=== PATIENT | female | born 1985 | race Caucasian/White ===

== ENCOUNTER 2017-02-27 00:17 | Emergency (ER) | payer OTHER ==
[2017-02-27] MEDS ORDERED: NALOXONE HCL INJ/PF 0.4 MG/1 ML SDV IV ONE (00:21)
[2017-02-27] MEDS ORDERED: ONDANSETRON HCL INJ/PF 4 MG/2 ML SDV IV ONE (00:21)
--- NOTE | 2017-02-27 00:37 | ER Document Report ---
ED General - General Stated Complaint: POSSIBLE OD Notes: Patient is a 31 of female presents for complaint of an overdose. Patient Shall appear 1. Bystanders thought there may have been some fentanyl mixed with it. This is really unclear. Patient says in of the drug she use was marijuana. She denies any alcohol use. When the paramedics arrived bystanders had been doing CPR. Patient was somnolent but awake. She has been awake for them on the way here yet still somnolent. O2 saturations on arrival 87% on room air. She denies a recent fevers. No infections. No trauma. She has no other complaints at this time. He did vomit once in the months. TRAVEL OUTSIDE OF THE [place] IN LAST 30 DAYS: No - Related Data Allergies/Adverse Reactions: tramadol HCl [From Ultram] Allergy (Severe, Verified 08/30/16 15:51) haloperidol [From Haldol] Allergy (Verified 08/30/16 15:51) sulfamethoxazole [From Bactrim] Allergy (Verified 08/30/16 15:51) trimethoprim [From Bactrim] Allergy (Verified 08/30/16 15:51) Past Medical History - Social History Smoking Status: Current Every Day Smoker Frequency of alcohol use: Occasional Drug Abuse: Heroin, Marijuana Family History: Arthritis, CAD, CVA, DM, Hyperlipidemia, Hypertension, Malignancy Pulmonary Medical History: Reports: Hx Bronchitis - Reports history of bronchitis Neurological Medical History: Reports: Hx Migraine Renal/ Medical History: Reports: Hx Ovarian Cysts GI Medical History: Reports: Hx Gastroesophageal Reflux Disease, Hx Hepatitis - c Skin Medical History: Reports Hx MRSA Psychiatric Medical History: Reports: Hx Anxiety, Hx Bipolar Disorder, Hx Borderline Personality Disorder, Hx Depression, Hx Personality Disorder Infectious Medical History: Reports: Hx Hepatitis - c, Hx MRSA - Immunizations Immunizations up to date: Yes Hx Diphtheria, Pertussis, Tetanus Vaccination: Yes - 2013 Hx Pneumococcal Vaccination: 09/14/12 Review of Systems - Review of Systems Notes: My Normal Review Basic REVIEW OF SYSTEMS: CONSTITUTIONAL : Denies fever, chills, or sweats. Denies recent illness. EENT: Denies eye, ear, throat, or mouth pain or symptoms. Denies nasal or sinus congestion. RESPIRATORY: Shallow respirations GASTROINTESTINAL: Denies abdominal pain. Denies nausea, vomiting, or diarrhea. Denies constipation. Last BM: GENITOURINARY: Denies difficulty urinating, painful urination, burning, frequency, or blood in urine. MUSCULOSKELETAL: Denies neck or back pain or joint pain or swelling. SKIN: Denies rash or skin lesions. NEUROLOGICAL: Altered mental status. Denies headache. Denies weakness or paralysis or loss of use of either side. Denies problems with gait or speech. Denies sensory or motor loss. ALL OTHER SYSTEMS REVIEWED AND NEGATIVE. Physical Exam - Vital signs Vitals: Resp Pulse Ox 21 H 93 02/27/17 00:20 02/27/17 00:20 - Notes Notes: General Appearance: Well nourished, somnolent but awake. Cooperative, no acute distress, no obvious discomfort. Vitals: reviewed, See vital signs table. Head: no swelling or tenderness to the head Eyes: PERRL, EOMI, Conjuctiva clear Mouth: No decreasd moisture Neck: Supple, no neck tenderness, No thyromegaly Lungs: No wheezing, No rales, No rhonci, No accessory muscle use, good air exchange bilaterally. Heart: Normal rate, Regular rythm, No murmur, no rub Abdomen: Normal BS, soft, No rigidity, No abdominal tenderness, No guarding, no rebound, no abdominal masses, no organomegaly Extremities: strength 5/5 in all extremities, good pulses in all extremities, no swelling or tenderness in the extremities, no edema. Skin: warm, dry, appropriate color, no rash Neuro: speech clear, oriented x 3, somnolent, responds appropriately to questions. Cranial nerves II through XII are intact. Patient moves all extremity is on her own. Course - Vital Signs Vital signs: Temp Pulse Resp BP Pulse Ox 24 H 105/75 93 02/27/17 03:30 02/27/17 03:30 02/27/17 03:30 - EKG Interpretation by Me Additional EKG results interpreted by me: 02/27/17 00:37 EKG is reviewed and interpreted by me. EKG shows sinus tachycardia with rate [address] segment elevation or depression. No ischemic T wave inversions. WA interval, QRS duration, QTC stools are within normal range. No old EKG available for comparison. - Transfer of Care Notes: 02/27/17 04:31 Patient has now been observed for over 4 hours and has not had any repeat episodes of altered mental status or hypoxemia. She's actually awake and alert and yelling at staff because she wants to speak with her mother. She says her mother works here in the hospital in communications but she is unsure if her mother is actually working tonight. I informed her that I would be happy to get her a phone so that she can call her mother and speak with her. Patient is not hypoxic. She is obviously not at all sedated at this time. Patient tells me that she only uses heroin because of her tooth pain and therefore is requesting that I prescribe her opiate pain medications for her tooth pain. Patient has multiple track aguero. I do not think that the patient uses heroin only for her tooth pain. I informed her that prescribing her opiate pain medications would actually be a very bad idea as I'm concerned that she would potentially abuse these as well. I informed her that continued use of opiate medications or heroin may eventually lead to her as she obviously is not very careful on her use of these substances, i.e.: her overdose tonight. I did look at her teeth. Her dentition is in fairly good shape. She does have a right lower molar with a filling in place that is slightly mccall in color. This is the tooth that she says is causing her pain. There is no gingival swelling or inflammation around it. I informed her I will place her on penicillin help prevent infection, but she needs to call a dentist and make an appointment to follow-up for more definitive care for her tooth. Patient again is not happy with this and again is requesting pain medication and a direct referral to a dentist that will not make her pay up front. I informed her that I do not know of any dentists in the area that will not make her pay up front. She has no facial swelling. No signs of facial abscess. At this time patient will be discharged home. She again is strongly encouraged to avoid opiate drugs and medications. I've given her information for [facility] as well as a list of low cost dental clinics. Dictation of this chart was performed using voice recognition software; therefore, there may be some unintended grammatical errors. Discharge - Discharge Clinical Impression: Pain, dental Condition: Good Disposition: HOME, SELF-CARE Instructions: Penicillin V K ([facility]) Additional Instructions: Toothache Your pain is due to dental decay. The tooth must be repaired in order for you to feel better. You will, therefore, be referred to a dentist. Severe swelling or drainage around a tooth usually means a deep dental abscess. This also requires evaluation and treatment by the dentist, but antibiotics may be prescribed while awaiting dental treatment. You should be rechecked immediately if you develop major swelling of the face, increasing pain, a lump in the jaw or gums, headache, or fever. Please call a dentist office to make a follow-up appointment. Please avoid IV drug use. Please avoid opiate use. Continued use of opiates ,such as Heroin, may lead to your . It is acceptable to take Tylenol or Motrin for your pain. I have included information to [facility] services to help you with your opiate addiction. Prescriptions: Penicillin V Potassium [Penicillin Vk 500 mg Tablet] 500 mg PO QID #28 tablet Referrals: DOMI LOVETT DDS [ACTIVE STAFF] - 02/28/17
[2017-02-27] MEDS ORDERED: PENICILLIN V POTASSIUM 500 MG TABLET PO ONE (04:20)
[2017-02-27 04:51] VITALS: BP 99/72
--- NOTE | 2017-02-27 09:05 | EKG REPORT ---
SEVERITY:- BORDERLINE ECG - SINUS TACHYCARDIA LOW VOLTAGE WITH RIGHT AXIS DEVIATION : Confirmed by: Rd Acuña MD 27-Feb-2017 09:05:00
== END 2017-02-27 04:51 | disposition home or self-care (01) ==
LOC: ER 00:17
DX: K08.89 Other specified disorders of teeth and supporting structures (principal); F11.10 Opioid abuse, uncomplicated; F12.10 Cannabis abuse, uncomplicated; R40.0 Somnolence; R06.09 Other forms of dyspnea; R00.0 Tachycardia, unspecified; F17.200 Nicotine dependence, unspecified, uncomplicated; Z88.8 Allergy status to other drugs, medicaments and biological substances; Z88.1 Allergy status to other antibiotic agents; Z88.5 Allergy status to narcotic agent; Z86.14 Personal history of Methicillin resistant Staphylococcus aureus infection
CPT/HCPCS: 93005; 99284; 96374; 96375; 93010; J2310; J2405

== ENCOUNTER 2017-03-25 21:12 | Emergency (ER) | payer OTHER ==
--- NOTE | 2017-03-25 21:59 | ER Document Report ---
ED General - General Chief Complaint: Psych Problem Stated Complaint: PSYCH PROBLEM Time Seen by Provider: 03/25/17 21:59 Mode of Arrival: Stretcher Information source: Patient, Law Enforcement, Emergency Med Personnel TRAVEL OUTSIDE OF THE [place] IN LAST 30 DAYS: No - HPI Notes: Patient with a long-standing psychiatric history and history of previous overdoses and opiate abuse and MRSA and hepatitis C and IV drug use presents to emergency department with IV C paper with report that the patient has told her roommate she was looking for a knife to cut her wrist and stated she wanted to kill herself. The patient had placed on Facebook concerning suicide and stating that she did not want to wake up. The patient was threatening to fight her roommates and told her mother that she would kill herself previously. Patient has a history of previous attempts with bipolar disorder and PTSD. On my questioning the patient states that she wants "those bitches out of my house"referring to her roommates, and is also referring to her mother, the petitioner on the IVC papers, in foul terms. Patient is nebulous about suicidal intent and ideation. She does state she wants to go home. She denies any homicidal ideation or obvious hallucinations. The patient reportedly was using heroin previously. The patient has been alert although with slightly slurred speech is noted by EMS. The patient reportedly may have overdosed on Fioricet and clindamycin which she is prescribed for her toothache which is chronic. Patient is nebulous about the overdose, gouging only taking the clindamycin in excess. - Related Data Allergies/Adverse Reactions: tramadol HCl [From Ultram] Allergy (Severe, Verified 03/25/17 21:42) haloperidol [From Haldol] Allergy (Verified 03/25/17 21:42) sulfamethoxazole [From Bactrim] Allergy (Verified 03/25/17 21:42) trimethoprim [From Bactrim] Allergy (Verified 03/25/17 21:42) Past Medical History - Social History Smoking Status: Current Every Day Smoker Chew tobacco use (# tins/day): No Drug Abuse: Prescription drugs Family History: Arthritis, CAD, CVA, DM, Hyperlipidemia, Hypertension, Malignancy Pulmonary Medical History: Reports: Hx Bronchitis - Reports history of bronchitis Neurological Medical History: Reports: Hx Migraine Renal/ Medical History: Reports: Hx Ovarian Cysts GI Medical History: Reports: Hx Gastroesophageal Reflux Disease, Hx Hepatitis - c Skin Medical History: Reports Hx MRSA Psychiatric Medical History: Reports: Hx Anxiety, Hx Bipolar Disorder, Hx Borderline Personality Disorder, Hx Depression, Hx Personality Disorder Infectious Medical History: Reports: Hx Hepatitis - c, Hx MRSA - Immunizations Immunizations up to date: Yes Hx Diphtheria, Pertussis, Tetanus Vaccination: Yes - 2013 Hx Pneumococcal Vaccination: 09/14/12 Review of Systems - Review of Systems Notes: REVIEW OF SYSTEMS: CONSTITUTIONAL : Denies fever, chills, or sweats. Denies recent illness. EENT: Denies eye, ear, throat symptoms. Denies nasal or sinus congestion or discharge. Denies throat, tongue, or mouth swelling or difficulty swallowing. Patient does report chronic dental pain which is unchanged. CARDIOVASCULAR: Denies chest pain. Denies palpitations or racing or irregular heart beat. Denies ankle edema. RESPIRATORY: Denies cough, cold, or chest congestion. Denies shortness of breath, difficulty breathing, or wheezing. GASTROINTESTINAL: Denies abdominal pain or distention. Denies nausea, vomiting , or diarrhea. Denies blood in vomitus, stools, or per rectum. Denies black, tarry stools. Denies constipation. GENITOURINARY: Denies difficulty urinating, painful urination, burning, frequency, blood in urine, or discharge. FEMALE GENITOURINARY: Denies vaginal bleeding, heavy or abnormal periods, irregular periods. Denies vaginal discharge or odor. MUSCULOSKELETAL: Denies back or neck pain or stiffness. Denies joint pain or swelling. SKIN: Denies rash, lesions or sores. HEMATOLOGIC : Denies easy bruising or bleeding. LYMPHATIC: Denies swollen, enlarged glands. NEUROLOGICAL: Denies confusion or altered mental status. Denies passing out or loss of consciousness. Denies dizziness or lightheadedness. Denies headache. Denies weakness or paralysis or loss of use of either side. Denies problems with gait or speech. Denies sensory loss, numbness, or tingling. Denies seizures. PSYCHIATRIC: Denies homicidal ideation. Patient admits to anxiety and recent stressors. ALL OTHER SYSTEMS REVIEWED AND NEGATIVE. Dictation was performed using [employer] voice recognition software Physical Exam - Vital signs Vitals: Temp Pulse Resp BP Pulse Ox 98.3 F 61 18 105/69 98 03/25/17 21:29 03/25/17 21:29 03/25/17 21:29 03/25/17 21:29 03/25/17 21:29 - Notes Notes: PHYSICAL EXAMINATION: GENERAL: Well-appearing, well-nourished. Patient is anxious and tearful. HEAD: Atraumatic, normocephalic. EYES: Pupils equal round and reactive to light, extraocular movements intact, conjunctiva are normal. ENT: Nares patent, oropharynx clear without exudates. Moist mucous membranes. NECK: Normal range of motion, supple without lymphadenopathy LUNGS: Breath sounds clear to auscultation bilaterally and equal. No wheezes rales or rhonchi. HEART: Regular rate and rhythm without murmurs ABDOMEN: Soft, nontender, nondistended abdomen. No guarding, no rebound. No masses appreciated. Female : deferred Musculoskeletal: Normal range of motion, no pitting or edema. No cyanosis. NEUROLOGICAL: Cranial nerves grossly intact. Normal gait. Normal sensory, motor exams. Somewhat slurred speech. PSYCH: Labile affect. Tearful. Is very nebulous about suicidal ideation and intent, but does admit to overdose on clindamycin. SKIN: Warm, Dry, normal turgor, no rashes or lesions noted. Course - Re-evaluation Re-evalutation: 03/26/17 03:31 Patient was given Ativan with some improvement initially, then the patient was given ibuprofen for her chronic toothache pain. Repeat exam showed no abnormalities with the teeth. Patient complains she wanted something stronger for toothache pain, but I informed her that she would not receive anything stronger. Patient remained relatively alert, and there was no clinical suspicion for any significant overdose based upon her normal vitals, negative Tylenol level and her degree of alertness. 03/26/17 03:34 Patient again was belligerent with staff. She was given additional 2 mg of by mouth Ativan and was given Zyprexa 10 mg ODT. Vital signs were stable. Drug screen positive for opiates benzodiazepines and cocaine. Patient medically cleared for psychiatric evaluation and management. 03/26/17 03:37 - Vital Signs Vital signs: Temp Pulse Resp BP Pulse Ox 98.3 F 61 18 114/79 98 03/25/17 21:29 03/25/17 21:29 03/26/17 00:04 03/26/17 00:04 03/26/17 00:04 03/26/17 03:29 Patient was given Ativan with some degree of improvement. Patient went to sleep briefly. - Laboratory Result Diagrams: 03/25/17 23:47 03/25/17 23:47 Laboratory results interpreted by me: 03/25/17 03/25/17 03/25/17 21:12 23:47 23:47 MCH 26.1 L RDW 17.1 H Lymphocytes % 45.7 H Chloride 109 H Carbon Dioxide 18 L Total Protein 8.3 H Ur Leukocyte Esterase SMALL H Urine Ascorbic Acid 40 H Acetaminophen < 10 L - EKG Interpretation by Or EKG shows normal: Sinus rhythm Additional EKG results interpreted by me: 03/26/17 00:09 EKG as interpreted by tn showed normal sinus rhythm at 58. There is no gross evidence for acute [place] or ischemia identified. There is no significant change from previous EKG reviewed from 02/27/17. Discharge - Discharge Clinical Impression: Polysubstance abuse, Suicidal ideation, Bipolar disorder with depression
[2017-03-25 22:04] LABS: APPEARANCE,URINE CLOUDY; BILIRUBIN,URINE NEGATIVE (NEGATIVE); GLUCOSE, URINE NEGATIVE (NEGATIVE); KETONES,URINE NEGATIVE (NEGATIVE); LEUKOCYTE ESTERASE,URINE SMALL (NEGATIVE); NITRITE,URINE NEGATIVE (NEGATIVE); PROTEIN,URINE NEGATIVE (NEGATIVE); URINE SPECIFIC GRAVITY 1.019; UROBILINOGEN,URINE NEGATIVE mg/dL (<2.0)
[2017-03-25] MEDS ORDERED: LORAZEPAM 1 MG TABLET PO ONE (23:46)
[2017-03-25 23:54] LABS: URINE BARBITURATES SCREEN UNCONFIRMED POSITIVE; URINE METHADONE SCREEN NEGATIVE; URINE OPIATES LOW NEGATIVE; URINE PHENCYCLIDINE SCREEN NEGATIVE
[2017-03-26 00:04] LABS: ABSOLUTE BASOPHILS # (AUTO) 0.1 10^3/uL (0.0-0.2); ABSOLUTE EOSINOPHILS # (AUTO) 0.1 10^3/uL (0.0-0.6); ABSOLUTE LYMPHOCYTES (AUTO) 3.5 10^3/uL (0.5-4.7); ABSOLUTE MONOCYTES (AUTO) 0.5 10^3/uL (0.1-1.4); ABSOLUTE NEUT (AUTO) 3.5 10^3/uL (1.7-8.2); BASOPHILS % (AUTO) 1.2 % (0-2); EOSINOPHILS % (AUTO) 1.6 % (0-6); HEMATOCRIT 41.8 % (36.0-47.0); HEMOGLOBIN 13.5 g/dL (12.0-15.5); HGB HCT DIFFERENCE -1.3; LYMPHOCYTES % (AUTO) 45.7 % (13-45); MEAN CORPUSCULAR HEMOGLOBIN 26.1 pg (27.0-33.4); MEAN CORPUSCULAR HGB CONC 32.4 g/dL (32.0-36.0); MEAN CORPUSCULAR VOLUME 80 fl (80-97); MONOCYTES % (AUTO) 6.4 % (3-13); RED BLOOD COUNT 5.19 10^6/uL (3.72-5.28); RED CELL DISTRIBUTION WIDTH 17.1 % (11.5-14.0); SEGMENTED NEUTROPHILS % (AUTO) 45.1 % (42-78); WHITE BLOOD COUNT 7.8 10^3/uL (4.0-10.5)
[2017-03-26 00:13] LABS: ALANINE AMINOTRANSFERASE 34 U/L (9-52); ALBUMIN 4.1 g/dL (3.5-5.0); ALKALINE PHOSPHATASE 121 U/L (38-126); ANION GAP 14 (5-19); ASPARTATE AMINO TRANSFERASE 22 U/L (14-36); BILIRUBIN,DIRECT 0.3 mg/dL (0.0-0.4); BILIRUBIN,TOTAL 0.4 mg/dL (0.2-1.3); BLOOD UREA NITROGEN 9 mg/dL (7-20); CALCIUM 9.3 mg/dL (8.4-10.2); CARBON DIOXIDE 18 mmol/L (22-30); CHLORIDE 109 mmol/L (98-107); CREATININE RESULT 0.81 mg/dL (0.52-1.25); GLUCOSE 88 mg/dL (75-110); POTASSIUM 4.5 mmol/L (3.6-5.0); SODIUM 140.5 mmol/L (137-145); TOTAL PROTEIN 8.3 g/dL (6.3-8.2)
[2017-03-26 00:15] LABS: ALCOHOL < 10 mg/dL (NONE DETECTED)
[2017-03-26] MEDS ORDERED: IBUPROFEN 800 MG TABLET PO ONE ×2 (02:09→11:55)
[2017-03-26] MEDS ORDERED: LORAZEPAM 1 MG TABLET PO ONE (03:27)
[2017-03-26] MEDS ORDERED: OLANZAPINE 5 MG TAB.RAPDIS PO ONE (03:28)
[2017-03-26] MEDS ORDERED: ACETAMINOPHEN 325 MG TABLET PO ONE ×2 (07:55→15:28)
--- NOTE | 2017-03-26 09:16 | ER Document Report ---
Doctor's Note Notes: 03/26/17 09:16 As the rounding physician for our psychiatric patients, I have reviewed the chart, vitals, lab work. Patient has been examined and noted to be stable . I am awaiting mental health in put. 03/26/17 10:14
--- NOTE | 2017-03-26 13:04 | EKG REPORT ---
SEVERITY:- ABNORMAL ECG - SINUS RHYTHM LAD, CONSIDER LEFT ANTERIOR FASCICULAR BLOCK : Confirmed by: Layton Gonzalez 26-Mar-2017 13:02:44
[2017-03-26] MEDS ORDERED: ACETAMINOPHEN 325 MG TABLET ONE (15:31)
--- NOTE | 2017-03-26 15:32 | PSYCHOLOGICAL NOTE ---
Psych Note - Psych Note Psych Note: Patient with a long-standing psychiatric history and history of previous overdoses and opiate abuse and MRSA and hepatitis C and IV drug use presents to emergency department with IV C paper with report that the patient has told her roommate she was looking for a knife to cut her wrist and stated she wanted to kill herself. The patient had placed on Facebook concerning suicide and stating that she did not want to wake up. The patient was threatening to fight her roommates and told her mother that she would kill herself previously. Patient has a history of previous attempts with bipolar disorder and PTSD. Patient states that she was not trying to kill herself. She states her roommates thought she overdosed. The patient states that she did take too many of her pills however it was because her teeth hurt. Patient states she is "trying to stop the pain." Patient states that she needs her to tease out because they hurt so much." [facility]. Patient disclosed that she has schizoaffective bipolar type disorder. patient denies wanting to kill herself stating she just has pain in her tooth. She continue disclosed that she does not remember posting anything about suicidal ideation. Clinician asked the patient why her friends and family would be concerned that she kill herself on Mother's Day, patient stated "why would I do that that's stupid." Patient continued to disclose that her mother is "a drama rollins." Patient states that she will [facility] all the [facility] to include [facility]. Clinician spoke with patient's mother. Patient's mother became very emotional and requested assistance for the patient substance abuse. She continue disclose the patient is attempting suicide and will kill herself tomorrow on Mother's Day because "she would like nothing better to make me miserable for the rest of my life on Mother's Day." She continued disclosed concern the patient was not going to receive any assistance and that the patient is suicidal. She continued disclosed that there are text messages in Facebook posts surrounding suicidal ideation. Clinician requested patient's mother to bring this to the emergency department for the clinicians review. Clinician needed to end the conversation because of patient's mother emotional's response. Polysubstance abuse Schizoaffective bipolar type per history provided by patient Impression\\plan: Patient is recommended for rescind of IVC is considered psychiatrically cleared for discharge. Patient does not meet IVC criteria per [place] GS 122C. Patient has a long history of overdose substance abuse. Patient is noted to be complaining of her teeth hurting since last year and has had multiple visits to the ED. Patient has demonstrated behavior congruent with seeking narcotics from attending physician. Patient is urged to seek substance abuse assessment and treatment. Clinician provided substance abuse treatment lists for both inpatient and outpatient. At this time, patient is unwilling to contemplate the possibility of her addiction. Clinician notes that while patient's mother stated should be right to the emergency department with this information, 4 hours later she has not arrived to provided the proof of her statement in the IVC documentation. Dr. Carvajal was consulted on the care and management of this patient; attending physician is in agreement with recommendations and disposition.
[2017-03-26 16:53] VITALS: BP 105/62
== END 2017-03-26 16:55 | disposition home or self-care (01) ==
LOC: ER 21:12
DX: F25.0 Schizoaffective disorder, bipolar type (principal); R45.851 Suicidal ideations; F11.10 Opioid abuse, uncomplicated; K08.89 Other specified disorders of teeth and supporting structures; G89.29 Other chronic pain; F41.9 Anxiety disorder, unspecified; F17.200 Nicotine dependence, unspecified, uncomplicated; Z79.2 Long term (current) use of antibiotics; Z79.891 Long term (current) use of opiate analgesic; Z86.14 Personal history of Methicillin resistant Staphylococcus aureus infection; Z88.5 Allergy status to narcotic agent; Z88.8 Allergy status to other drugs, medicaments and biological substances; Z88.1 Allergy status to other antibiotic agents
CPT/HCPCS: 93005; 99285; 36415; 80307 ×3; 85025; 81025; 80053; 81001; 93010; J3490

== ENCOUNTER 2018-06-13 13:18 | Emergency (ER) | payer OTHER ==
[2018-06-13 13:31] VITALS: BP 107/65
--- NOTE | 2018-06-13 14:23 | ER Document Report ---
ED Medical Screen (RME) - General Chief Complaint: Psych Problem Stated Complaint: WRIST PAIN Time Seen by Provider: 06/13/18 14:20 Mode of Arrival: Ambulatory Information source: Patient Notes: This is a 33-year-old female with a history of opiate abuse, hepatitis C, schizoaffective disorder, chronic pain syndrome, presents to the emergency room with right wrist and left ankle pain. Patient does state that she falls frequently and she may have fallen. She denies any headache, loss of consciousness, neck pain, fever or photophobia. She does report that she picks her skin a lot and she came off her antidepressant recently and has been picking her skin a lot. She denies any recent IV drug abuse. She does have a history of IV drug abuse. She does state that she takes Xanax infrequently for her anxiety. She states that the right wrist and the left ankle pain started a few days ago. TRAVEL OUTSIDE OF THE [place] IN LAST 30 DAYS: No - HPI Onset: Last week Onset/Duration: Gradual Quality of pain: Dull Severity: Moderate Pain Level: 2 Associated Symptoms: denies: Chest pain, Fever, Shortness of breath Exacerbated by: Movement Relieved by: Remaining still Similar symptoms previously: No Recently seen / treated by doctor: Yes - Related Data Smoking: Non-smoker Frequency of alcohol use: None Drug Abuse: Heroin, Methamphetamine Allergies/Adverse Reactions: tramadol HCl [From Ultram] Allergy (Severe, Verified 06/13/18 14:22) haloperidol [From Haldol] Allergy (Verified 06/13/18 14:22) sulfamethoxazole [From Bactrim] Allergy (Verified 06/13/18 14:22) trimethoprim [From Bactrim] Allergy (Verified 06/13/18 14:22) Past Medical History - General Information source: Patient - Social History Cigarette use (# per day): No Chew tobacco use (# tins/day): No Frequency of alcohol use: Occasional Drug Abuse: Cocaine, Heroin, Marijuana Lives with: Spouse/Significant other Family history: None - Past Medical History Cardiac Medical History: Reports: None Pulmonary Medical History: Reports: Hx Bronchitis - Reports history of bronchitis Neurological Medical History: Reports: Hx Migraine Renal/ Medical History: Reports: Hx Ovarian Cysts. Denies: Hx Peritoneal Dialysis GI Medical History: Reports: Hx Gastroesophageal Reflux Disease, Hx Hepatitis - c Skin Medical History: Reports Hx MRSA Psychiatric Medical History: Reports: Hx Anxiety, Hx Bipolar Disorder, Hx Borderline Personality Disorder, Hx Depression, Hx Personality Disorder Infectious Medical History: Reports: Hx Hepatitis - c, Hx MRSA - Immunizations Immunizations up to date: Yes Hx Diphtheria, Pertussis, Tetanus Vaccination: Yes - 2013 Review of Systems - Review of Systems Constitutional: denies: Chills, Fever EENT: No symptoms reported Cardiovascular: No symptoms reported Respiratory: No symptoms reported Gastrointestinal: No symptoms reported Genitourinary: No symptoms reported Female Genitourinary: No symptoms reported Musculoskeletal: See HPI Skin: See HPI Hematologic/Lymphatic: No symptoms reported Neurological/Psychological: See HPI. denies: Hallucinations, Weakness, Paralysis, Lost consciousness, Speech impairment Physical Exam - Vital signs Vitals: Temp Pulse Resp BP Pulse Ox 99.1 F 107 H 16 107/65 99 06/13/18 13:26 06/13/18 13:26 06/13/18 13:26 06/13/18 13:26 06/13/18 13:26 Notes: Physical exam: GENERAL: 33-year-old female she is lethargic, oriented 3, conversant, polite and cooperative. She does appear to be mentating appropriately. HEAD: Atraumatic, normocephalic. EYES: Pupils equal round and reactive to light, extraocular movements intact, sclera anicteric, conjunctiva are normal. ENT: TMs normal, nares patent, oropharynx clear without exudates. Moist mucous membranes. NECK: Normal range of motion, supple without obvious mass LUNGS: Breath sounds clear to auscultation bilaterally and equal. No wheezes rales or rhonchi. HEART: Regular rate and rhythm without murmurs, rubs or gallops. ABDOMEN: Soft, normoactive bowel sounds. No tenderness to palpation. No guarding, no rebound. No masses appreciated. EXTREMITIES: She does have mild swelling over the right wrist without any erythema or warmth or fluctuance. She does have a good radial pulse. She does have good capillary refill. There are multiple skin changes on the fingers, hands, forearms, arms as noted under the skin exam. She has tenderness to palpation of the bone. The left wrist has no tenderness, no swelling, no erythema and has a same skin changes as the other side. Left ankle has mild swelling with no erythema, no warmth, no fluctuance. She does have a good dorsal pedal pulse and good capillary refill. Right ankle is nontender, no swelling, no erythema or warmth with good dorsal pedal pulse. NEUROLOGICAL: Cranial nerves II through XII grossly intact. Normal speech, moving all extremities. PSYCH: Normal mood, normal affect. SKIN: Patient has multiple scabbed lesions from the fingers, hands up to the forearms and arms. Patient states she picks her skin a lot. She does have some erythema over some of the lesions on the left upper extremity (this is the opposite extremity from where her right wrist pain is). There is no fluctuance , there is mild warmth. Course - Re-evaluation Re-evalutation: 06/13/18 15:45 Had a long discussion with the patient's boyfriend who lives with the patient. She is actively using IV drugs. She is getting back on her psychiatric medicines momentarily. She has not had any fever and I do not see any signs of septic arthritis at this time. However, she is actively using and I discussed her markedly elevated risk of serious illness (endocarditis, sepsis, septic arthritis) to her boyfriend. He will try and bring her down to the [facility] in [place] for rehab. Patient herself denies any IV drug use and is in active denial. 06/13/18 15:46 06/13/18 15:55 - Vital Signs Vital signs: Temp Pulse Resp BP Pulse Ox 99.1 F 107 H 16 107/65 99 06/13/18 13:26 06/13/18 13:26 06/13/18 13:26 06/13/18 13:26 06/13/18 13:26 - Diagnostic Test Radiology reviewed: Image reviewed, Reports reviewed Doctor's Discharge - Discharge Clinical Impression: Cellulitis left forearm mild, Sprain to the right wrist and left ankle Condition: Stable Disposition: HOME, SELF-CARE Additional Instructions: Its important that you get back on new medicines. Take the antibiotics as prescribed. Be very careful about falling. Return to the emergency room for any swelling of the wrist or ankle, fever ( temperature greater than 100.5), increasing pain or any concerns or getting worse. I would like you to call to make an appointment with your doctor at the [place] so that you could be seen in the next few days. Prescriptions: Doxycycline Hyclate 100 mg PO BID #20 capsule Referrals: MELAINA MCNAMARA MD [Primary Care Provider] - Follow up as needed
--- NOTE | 2018-06-13 15:19 | RADIOLOGY REPORT (SQ) ---
EXAM DESCRIPTION: ANKLE LEFT AP/LATERAL COMPLETED DATE/TIME: 06/13/2018 3:03 pm REASON FOR STUDY: left ankle pain COMPARISON: None. NUMBER OF VIEWS: Two views TECHNIQUE: AP and lateral radiographic images acquired of the left ankle. LIMITATIONS: None. FINDINGS: MINERALIZATION: Normal. BONES: No acute fracture or dislocation. No worrisome bone lesions. JOINTS: No effusions. SOFT TISSUES: There appears to be some mild soft tissue swelling. No radiopaque foreign body is iden tified. OTHER: No other significant finding. IMPRESSION: NO RADIOGRAPHIC EVIDENCE OF ACUTE INJURY. TECHNICAL DOCUMENTATION: JOB ID: [id number] [email or web address]- All Rights Reserved Reading location - IP/workstation name: [email or web address]
--- NOTE | 2018-06-13 15:21 | RADIOLOGY REPORT (SQ) ---
EXAM DESCRIPTION: WRIST RIGHT 3 VIEWS COMPLETED DATE/TIME: 06/13/2018 3:03 pm REASON FOR STUDY: wrist pain COMPARISON: 04/14/2011 NUMBER OF VIEWS: Three views. TECHNIQUE: AP, lateral, and oblique radiographic images acquired of the right wrist. LIMITATIONS: None. FINDINGS: MINERALIZATION: Normal. BONES: No acute fracture or dislocation. No worrisome bone lesions. Normal alignment. SOFT TISSUES: No soft tissue swelling. No foreign body. OTHER: No other significant finding. IMPRESSION: NEGATIVE STUDY OF THE RIGHT WRIST. NO RADIOGRAPHIC EVIDENCE OF ACUTE INJURY. TECHNICAL DOCUMENTATION: JOB ID: [id number] [employer]- All Rights Reserved Reading location - IP/workstation name: [email or web address]
== END 2018-06-13 15:51 | disposition home or self-care (01) ==
LOC: ER 13:18
DX: S93.402A Sprain of unspecified ligament of left ankle, initial encounter (principal); S63.501A Unspecified sprain of right wrist, initial encounter; L03.114 Cellulitis of left upper limb; X58.XXXA Exposure to other specified factors, initial encounter; R53.83 Other fatigue; F41.9 Anxiety disorder, unspecified; Z91.81 History of falling; Z88.3 Allergy status to other anti-infective agents; Z86.14 Personal history of Methicillin resistant Staphylococcus aureus infection; Z86.19 Personal history of other infectious and parasitic diseases
CPT/HCPCS: 99284; 73600; 73110; L1902; L3908

== ENCOUNTER 2018-06-21 13:15 | Emergency (ER) | payer OTHER ==
[2018-06-21 13:35] VITALS: BP 103/69
--- NOTE | 2018-06-21 14:05 | ER Document Report ---
ED General - General Chief Complaint: Ankle Pain Stated Complaint: WRIST/ANKLE/HIP PAIN Time Seen by Provider: 06/21/18 13:44 Mode of Arrival: Wheelchair Information source: Patient Notes: 33-year-old female presented to ED for complaint of ankle pain and arm pain that radiates up her back. She denies any new injuries. She states the pain moves from one angle to the other and one arm to the other and one side of her back to the other. She has a history of chronic pain. She was seen here last week for pain to the other ankle. She does deny any new injuries no falls. TRAVEL OUTSIDE OF THE [place] IN LAST 30 DAYS: No - HPI Onset: Other - Several days Onset/Duration: Intermittent Quality of pain: Achy, Sharp Severity: Severe Pain Level: 5 Associated symptoms: Other - Chronic pain to ankles wrist and back, states her pain moves from one side to the other Exacerbated by: Movement Relieved by: Denies Similar symptoms previously: Yes Recently seen / treated by doctor: Yes - Related Data Allergies/Adverse Reactions: tramadol HCl [From Ultram] Allergy (Severe, Verified 06/21/18 13:16) haloperidol [From Haldol] Allergy (Verified 06/21/18 13:16) sulfamethoxazole [From Bactrim] Allergy (Verified 06/21/18 13:16) trimethoprim [From Bactrim] Allergy (Verified 06/21/18 13:16) Past Medical History - General Information source: Patient - Social History Smoking Status: Never Smoker Cigarette use (# per day): No Chew tobacco use (# tins/day): No Smoking Education Provided: No Frequency of alcohol use: Rare Drug Abuse: None Family History: Arthritis, CAD, CVA, DM, Hyperlipidemia, Hypertension, Malignancy - Past Medical History Cardiac Medical History: Reports: None Pulmonary Medical History: Reports: Hx Bronchitis - Reports history of bronchitis Neurological Medical History: Reports: Hx Migraine Renal/ Medical History: Reports: Hx Ovarian Cysts Malignancy Medical History: Reports: None GI Medical History: Reports: Hx Gastroesophageal Reflux Disease, Hx Hepatitis - c Skin Medical History: Reports Hx MRSA Psychiatric Medical History: Reports: Hx Anxiety, Hx Bipolar Disorder, Hx Borderline Personality Disorder, Hx Depression, Hx Personality Disorder Traumatic Medical History: Reports: None Infectious Medical History: Reports: Hx Hepatitis - c, Hx MRSA Surgical Hx: Negative Past Surgical History: Reports: None - Immunizations Immunizations up to date: Yes Hx Diphtheria, Pertussis, Tetanus Vaccination: Yes - 2013 Hx Pneumococcal Vaccination: 09/14/12 Review of Systems - Review of Systems Constitutional: No symptoms reported EENT: No symptoms reported Cardiovascular: No symptoms reported Respiratory: No symptoms reported Gastrointestinal: No symptoms reported Genitourinary: No symptoms reported Female Genitourinary: No symptoms reported Musculoskeletal: Other - Pain that radiates from the right leg to the left leg to the right arm to the left arm to the back of the neck to the head Skin: No symptoms reported Hematologic/Lymphatic: No symptoms reported Neurological/Psychological: No symptoms reported -: Yes All other systems reviewed and negative Physical Exam - Vital signs Vitals: Temp Pulse Resp BP Pulse Ox 99.0 F 105 H 20 103/69 97 06/21/18 13:33 06/21/18 13:33 06/21/18 13:33 06/21/18 13:33 06/21/18 13:33 Interpretation: Normal - General General appearance: Appears well, Alert - HEENT Head: Normocephalic, Atraumatic Eyes: Normal Pupils: PERRL - Respiratory Respiratory status: No respiratory distress Chest status: Nontender Breath sounds: Normal Chest palpation: Normal - Cardiovascular Rhythm: Regular Heart sounds: Normal auscultation Murmur: No - Abdominal Inspection: Normal Distension: No distension Bowel sounds: Normal Tenderness: Nontender Organomegaly: No organomegaly - Back Back: Normal, Nontender - Extremities General upper extremity: Normal inspection, Nontender, Normal color, Normal ROM , Normal temperature General lower extremity: Normal inspection, Nontender, Normal color, Normal ROM , Normal temperature, Normal weight bearing. No: Jodee's sign Forearm: Other - Cock-up splint to the right arm, she states it hurts too much when she takes it off Ankle: Other - Complains of pain in both legs that radiates from one to the other - Neurological Neuro grossly intact: Yes Cognition: Normal Orientation: AAOx4 Thom Coma Scale Eye Opening: Spontaneous Hartsel Coma Scale Verbal: Oriented Thom Coma Scale Motor: Obeys Commands Hartsel Coma Scale Total: 15 Speech: Normal Motor strength normal: LUE, RUE, LLE, RLE Sensory: Normal - Psychological Associated symptoms: Normal affect, Normal mood - Skin Skin Temperature: Warm Skin Moisture: Dry Skin Color: Normal Skin irregularity: other - Picked aguero or rash to both arms Course - Re-evaluation Re-evalutation: 06/21/18 16:23 Patient was treated with naproxen in the emergency room and discharged home with a prescription for naproxen. She was given a list of mental health workers in the area as well as pain management. Patient does have VA insurance she was instructed to please call her VA provider today and try to get into see them as soon as possible and until she can get in to use 1 of the local [facility] health providers for her mental health medications or the pain management for her pain management medications - Vital Signs Vital signs: Temp Pulse Resp BP Pulse Ox 99.0 F 105 H 20 103/69 97 06/21/18 13:33 06/21/18 13:33 06/21/18 13:33 06/21/18 13:33 06/21/18 13:33 Discharge - Discharge Clinical Impression: Chronic pain syndrome Condition: Stable Disposition: HOME, SELF-CARE Additional Instructions: Chronic Pain Control Stress, inactivity, and depression make pain more severe regardless of the cause of the pain. Stress and poor physical condition can cause pain such as headaches and backache. Relaxation: Rest in a quiet place with your eyes closed for 20 minutes twice daily. Concentrate on a pleasant image, or simply "feel" your breathing. Clear your mind. Stress management: Deal with your "stressors." Either take action, or eliminate the stressor from your life. Don't let things hang over you. Accept those things you can't change. Nutrition: Eat small, balanced meals -- don't skip, don't overeat. Meals should be high-carbohydrate, low-sugar, low-fat. Exercise: Exercise helps painful conditions and eases stress. Get 30 minutes of moderate exercise, five days a week. Do an activity that does not flare your pain. Precautions: Pain which continues to disrupt daily activities, or which changes in nature, requires a medical evaluation. Pain Clinic referral is available. We do not manage chronic pain in the Emergency Department. We will try to appropriately help you through an acute flare of your chronic painful condition , but for on-going chronic pain that does not improve, you will need to see your private doctor or electrostatic painter. We do not provide repeated medication management of chronic painful conditions. If you wish, we can provide the name of local pain management physicians. Anti-Inflammatory Medication You have received a prescription for an antiinflammatory agent. This is an excellent, safe drug for pain control. In addition, it has potent antiinflammatory effects which are beneficial, especially in the treatment of injuries, arthritis, or tendonitis. It's best to take this medicine with food. Persons with ulcer disease or allergy to aspirin should notify their physician of this before taking this drug. Take the medication exactly as prescribed. Don't take additional doses unless instructed to do so by your doctor. If you develop wheezing, shortness of breath, hives, faintness, stomach pain, vomiting, or dark black stools, return for re-evaluation at once. You were provided with a list of mental health providers in the area We will provided with a name and #4 chronic pain management. Please call these numbers to help you with your complaints until you can follow-up with the [facility] clinic FOLLOW-UP CARE: If you have been referred to a physician for follow-up care, call the physician s office for an appointment as you were instructed or within the next two days. If you experience worsening or a significant change in your symptoms, notify the physician immediately or return to the Emergency Department at any time for re-evaluation. Prescriptions: Naproxen 500 mg PO BIDP PRN #30 tablet PRN Reason: Forms: Smoking Cessation Education Referrals: MELANIA MCNAMARA MD [NO LOCAL MD] - Follow up as needed [facility] [Provider Group] - Follow up as needed
== END 2018-06-21 14:13 | disposition home or self-care (01) ==
LOC: ER 13:15
DX: G89.4 Chronic pain syndrome (principal); M25.572 Pain in left ankle and joints of left foot; M25.571 Pain in right ankle and joints of right foot; M79.601 Pain in right arm; M79.602 Pain in left arm; M79.604 Pain in right leg; M79.605 Pain in left leg; M54.2 Cervicalgia; R51 Headache; M54.9 Dorsalgia, unspecified; Z88.5 Allergy status to narcotic agent; Z88.8 Allergy status to other drugs, medicaments and biological substances; Z88.1 Allergy status to other antibiotic agents
CPT/HCPCS: 99283

== ENCOUNTER 2018-06-21 17:13 | Emergency (ER) | payer OTHER ==
[2018-06-21 17:24] VITALS: BP 119/65
--- NOTE | 2018-06-21 17:41 | ER Document Report ---
ED Medical Screen (RME) - General Chief Complaint: Psych Problem Stated Complaint: PSYCH EVAL Time Seen by Provider: 06/21/18 17:40 Notes: 33 years old with a history of psychiatric disorder, claims that for a month she has not been taking any medications, the medications were sent to the wrong address by the [place]. Claims that she is having generalized body aches and pain paranoia. TRAVEL OUTSIDE OF THE [place] IN LAST 30 DAYS: No - Related Data Allergies/Adverse Reactions: tramadol HCl [From Ultram] Allergy (Severe, Verified 06/21/18 17:14) haloperidol [From Haldol] Allergy (Verified 06/21/18 17:14) sulfamethoxazole [From Bactrim] Allergy (Verified 06/21/18 17:14) trimethoprim [From Bactrim] Allergy (Verified 06/21/18 17:14) Past Medical History - Social History Frequency of alcohol use: None Drug Abuse: Marijuana Family history: None Pulmonary Medical History: Reports: Hx Bronchitis - Reports history of bronchitis Neurological Medical History: Reports: Hx Migraine Renal/ Medical History: Reports: Hx Ovarian Cysts. Denies: Hx Peritoneal Dialysis GI Medical History: Reports: Hx Gastroesophageal Reflux Disease, Hx Hepatitis - c Skin Medical History: Reports Hx MRSA Psychiatric Medical History: Reports: Hx Anxiety, Hx Bipolar Disorder, Hx Borderline Personality Disorder, Hx Depression, Hx Personality Disorder Infectious Medical History: Reports: Hx Hepatitis - c, Hx MRSA - Immunizations Immunizations up to date: Yes Hx Diphtheria, Pertussis, Tetanus Vaccination: Yes - 2013 Physical Exam - Vital signs Vitals: Temp Pulse Resp BP Pulse Ox 98.4 F 80 20 119/65 82 L 06/21/18 17:22 06/21/18 17:22 06/21/18 17:22 06/21/18 17:22 06/21/18 17:22 Course - Vital Signs Vital signs: Temp Pulse Resp BP Pulse Ox 98.4 F 80 20 119/65 82 L 06/21/18 17:22 06/21/18 17:22 06/21/18 17:22 06/21/18 17:22 06/21/18 17:22
[2018-06-21 18:44] LABS: ABSOLUTE BASOPHILS # (AUTO) 0.1 10^3/uL (0.0-0.2); ABSOLUTE EOSINOPHILS # (AUTO) 0.1 10^3/uL (0.0-0.6); ABSOLUTE LYMPHOCYTES (AUTO) 2.6 10^3/uL (0.5-4.7); ABSOLUTE MONOCYTES (AUTO) 1.3 10^3/uL (0.1-1.4); ABSOLUTE NEUT (AUTO) 15.2 10^3/uL (1.7-8.2); BASOPHILS % (AUTO) 0.4 % (0-2); EOSINOPHILS % (AUTO) 0.8 % (0-6); HEMATOCRIT 31.9 % (36.0-47.0); HEMOGLOBIN 10.2 g/dL (12.0-15.5); LYMPHOCYTES % (AUTO) 13.6 % (13-45); MEAN CORPUSCULAR HEMOGLOBIN 22.8 pg (27.0-33.4); MEAN CORPUSCULAR HGB CONC 31.9 g/dL (32.0-36.0); MEAN CORPUSCULAR VOLUME 71 fl (80-97); MONOCYTES % (AUTO) 6.6 % (3-13); PLATELET COUNT 759 10^3/uL (150-450); RED BLOOD COUNT 4.48 10^6/uL (3.72-5.28); RED CELL DISTRIBUTION WIDTH 18.7 % (11.5-14.0); SEGMENTED NEUTROPHILS % (AUTO) 78.6 % (42-78); TOTAL CELLS COUNTED % (AUTO) 100 %; WHITE BLOOD COUNT 19.3 10^3/uL (4.0-10.5)
--- NOTE | 2018-06-21 18:53 | ER Document Report ---
ED Psych Disorder / Suicide - General Chief Complaint: Psych Problem Stated Complaint: PSYCH EVAL Time Seen by Provider: 06/21/18 17:40 TRAVEL OUTSIDE OF THE [place] IN LAST 30 DAYS: No - HPI Patient complains to provider of: Other - This 33-year-old female has a history of depression for which she has been treated with sertraline at high dose until approximately 4 weeks prior she also notes that she has had swelling in the right arm and scattered rashes over the arms with some pain in the joints. Nothing has seemed to make it any better, she notes that she was seen earlier today and complained about the pain in her back felt as if no was taking her seriously. - Related Data Allergies/Adverse Reactions: tramadol HCl [From Ultram] Allergy (Severe, Verified 06/21/18 17:14) haloperidol [From Haldol] Allergy (Verified 06/21/18 17:14) sulfamethoxazole [From Bactrim] Allergy (Verified 06/21/18 17:14) trimethoprim [From Bactrim] Allergy (Verified 06/21/18 17:14) Past Medical History - General Information source: Patient - Social History Smoking Status: Current Every Day Smoker Frequency of alcohol use: None Drug Abuse: Marijuana Family History: Arthritis, CAD, CVA, DM, Hyperlipidemia, Hypertension, Malignancy Patient has suicidal ideation: Yes Patient has homicidal ideation: No Pulmonary Medical History: Reports: Hx Bronchitis - Reports history of bronchitis Neurological Medical History: Reports: Hx Migraine Renal/ Medical History: Reports: Hx Ovarian Cysts. Denies: Hx Peritoneal Dialysis GI Medical History: Reports: Hx Gastroesophageal Reflux Disease, Hx Hepatitis - c Skin Medical History: Reports Hx MRSA Psychiatric Medical History: Reports: Hx Anxiety, Hx Bipolar Disorder, Hx Borderline Personality Disorder, Hx Depression, Hx Personality Disorder Infectious Medical History: Reports: Hx Hepatitis - c, Hx MRSA - Immunizations Immunizations up to date: Yes Hx Diphtheria, Pertussis, Tetanus Vaccination: Yes - 2013 Hx Pneumococcal Vaccination: 09/14/12 Review of Systems - Review of Systems -: Yes All other systems reviewed and negative Physical Exam - Vital signs Vitals: Temp Pulse Resp BP Pulse Ox 98.4 F 80 20 119/65 82 L 06/21/18 17:22 06/21/18 17:22 06/21/18 17:22 06/21/18 17:22 06/21/18 17:22 - General General appearance: Appears well In distress: None - HEENT Head: Normocephalic Eyes: Normal Conjunctiva: Normal Cornea: Normal - Respiratory Respiratory status: No respiratory distress Chest status: Nontender Breath sounds: Normal Chest palpation: Normal - Cardiovascular Rhythm: Regular Heart sounds: Normal auscultation Murmur: No - Abdominal Inspection: Normal Distension: No distension Bowel sounds: Normal - Back Back: Other - Tenderness in the paralumbar spinal muscles no midline tenderness - Extremities General upper extremity: Other - There is scattered ecchymosis and abrasion over the upper extremities on the left volar aspect of the arm 5 x 5 cm erythematous area. General lower extremity: Normal inspection - Neurological Neuro grossly intact: Yes - Psychological Associated symptoms: Normal affect - denies desire to harm self, denies desire to harm others, denies hallucinations Course - Re-evaluation Re-evalutation: 06/24/18 08:13 33 yo female that presents for right low back pain and swelling in the arms. She notes she has had chronic back pain which has been refractory to normal means of improvement like heat or tylenol. Labs were sent through triage which demonstrate a leukocytosis. The patient has not symptoms to suggest cauda equina syndrome, no saddle anesthesia, no weakess inthe lowers extremities, normal reflexes at the patella. There is tenderness worst in the quadratus lumborum of the right side. Patient also has a large erythematous area on the left forearm. Bedside ultraosund does not demonstrate any fluid collection amenable to drainage. Will plan for treatment with antibiotics for presumptive cellulitis. Patient denies specifically any desire to harm herself or anyone else, she noted frustration with a prior visit and stating that "perhaps the only way i' ll be able to get attention is if i kill myself" but that she speficially has no plans to harm herself or desire to. Her fiance in the room agrees that he believes she is safe. Patient will be discharged with return precuations and prescriptions for lidocaine cream as well as gabapentin and antibiotics for her cllulitis presumptively for MRSA - Vital Signs Vital signs: Temp Pulse Resp BP Pulse Ox 98.4 F 80 20 119/65 82 L 06/21/18 17:22 06/21/18 17:22 06/21/18 17:22 06/21/18 17:22 06/21/18 17:22 - Laboratory Result Diagrams: 06/21/18 18:08 06/21/18 18:08 Laboratory results interpreted by me: 06/21/18 06/21/18 06/21/18 18:02 18:08 18:08 WBC 19.3 H Hgb 10.2 L Hct 31.9 L MCV 71 L MCH 22.8 L MCHC 31.9 L RDW 18.7 H Plt Count 759 H Seg Neutrophils % 78.6 H Absolute Neutrophils 15.2 H Alkaline Phosphatase 164 H Total Protein 8.6 H Albumin 3.4 L Urine Protein 100 H Salicylates < 1.0 L Acetaminophen < 10 L Discharge - Discharge Clinical Impression: Hx MRSA infection Cellulitis Qualifiers: Site of cellulitis: extremity Site of cellulitis of extremity: upper extremity Laterality: left Qualified Code(s): L03.114 - Cellulitis of left upper limb Back pain Qualifiers: Back pain location: low back pain Chronicity: chronic Back pain laterality: left Sciatica presence: without sciatica Qualified Code(s): M54.5 - Low back pain Condition: Good Disposition: HOME, SELF-CARE Instructions: Cellulitis ([facility]), MRSA Cellulitis ([facility]) Additional Instructions: Follow-up with a primary care physician regarding your visit today. Use the antibiotic as prescribed. Return for any worsening symptoms. Prescriptions: Clindamycin HCl [Cleocin 300 mg Capsule] 450 mg PO TID 10 Days #50 capsule Gabapentin [Neurontin 300 mg Capsule] 300 mg PO Q12 #60 capsule Lidocaine HCl [Xylocaine 5% Ointment 35.44 gm] 35.44 applic TP BID #2 tube
[2018-06-21 19:03] LABS: APPEARANCE,URINE SLIGHTLY-CLOUDY; BILIRUBIN,URINE NEGATIVE (NEGATIVE); GLUCOSE, URINE NEGATIVE (NEGATIVE); KETONES,URINE NEGATIVE (NEGATIVE); LEUKOCYTE ESTERASE,URINE NEGATIVE (NEGATIVE); NITRITE,URINE NEGATIVE (NEGATIVE); PROTEIN,URINE 100 mg/dL (NEGATIVE); URINE SPECIFIC GRAVITY 1.029; UROBILINOGEN,URINE NEGATIVE mg/dL (<2.0)
[2018-06-21 19:05] LABS: COLOR,URINE YELLOW
[2018-06-21 19:05] LABS: ALANINE AMINOTRANSFERASE 17 U/L (9-52); ALBUMIN 3.4 g/dL (3.5-5.0); ALKALINE PHOSPHATASE 164 U/L (38-126); ANION GAP 14 (5-19); ASPARTATE AMINO TRANSFERASE 21 U/L (14-36); BILIRUBIN,DIRECT 0.3 mg/dL (0.0-0.4); BILIRUBIN,TOTAL 0.6 mg/dL (0.2-1.3); BLOOD UREA NITROGEN 16 mg/dL (7-20); CALCIUM 9.2 mg/dL (8.4-10.2); CARBON DIOXIDE 26 mmol/L (22-30); CHLORIDE 102 mmol/L (98-107); GLUCOSE 91 mg/dL (75-110); SODIUM 141.6 mmol/L (137-145); TOTAL PROTEIN 8.6 g/dL (6.3-8.2)
[2018-06-21 19:08] LABS: ACETAMINOPHEN < 10 ug/mL (10-30); ALCOHOL < 10 mg/dL (NONE DETECTED); SALICYLATE < 1.0 mg/dL (2.0-20.0)
[2018-06-21] MEDS ORDERED: GABAPENTIN 300 MG CAPSULE PO ONE (19:09)
[2018-06-21] MEDS ORDERED: LIDOCAINE 5% (700 MG) TRANSDERMAL ADH..PATCH TP ONE (19:09)
[2018-06-21 19:15] LABS: URINE AMPHETAMINES SCREEN NEGATIVE; URINE BARBITURATES SCREEN NEGATIVE; URINE BENZODIAZEPINES SCREEN NEGATIVE; URINE COCAINE SCREEN UNCONFIRMED POSITIVE; URINE MARIJUANA (THC) SCREEN UNCONFIRMED POSITIVE; URINE METHADONE SCREEN NEGATIVE; URINE PHENCYCLIDINE SCREEN NEGATIVE
--- NOTE | 2018-06-21 21:06 | RADIOLOGY REPORT (SQ) ---
EXAM DESCRIPTION: L SPINE 2 VIEWS COMPLETED DATE/TIME: 06/21/2018 8:54 pm REASON FOR STUDY: low back midline pain COMPARISON: 04/14/2011 NUMBER OF VIEWS: Two views. TECHNIQUE: AP and lateral radiographic images acquired of the lumbar spine. LIMITATIONS: None. FINDINGS: MINERALIZATION: Normal. SEGMENTATION: Normal. No transitional anatomy. ALIGNMENT: Normal. VERTEBRAE: Maintained height. No fracture or worrisome bone lesion. DISCS: Preserved height. No significant osteophytes or end plate irregularity. POSTERIOR ELEMENTS: Pedicles and facets are intact. No pars defect or posterior arch defects. HARDWARE: None in the spine. PARASPINAL SOFT TISSUES: Normal. PELVIS: Intact as visualized. No fractures or worrisome bone lesions. SI joints intact. OTHER: No other significant finding. IMPRESSION: NORMAL 2 VIEW LUMBAR SPINE. TECHNICAL DOCUMENTATION: JOB ID: [id number] [employer]- All Rights Reserved Reading location - IP/workstation name: [email or web address]
--- NOTE | 2018-06-21 21:22 | EKG REPORT ---
SEVERITY:- NORMAL ECG - SINUS RHYTHM : Confirmed by: Lacy Sagastume MD 21-Jun-2018 21:22:08
== END 2018-06-21 21:45 | disposition home or self-care (01) ==
LOC: ER 17:13
DX: M54.5 Low back pain (principal); G89.29 Other chronic pain; L03.114 Cellulitis of left upper limb; S40.812A Abrasion of left upper arm, initial encounter; X58.XXXA Exposure to other specified factors, initial encounter; M25.50 Pain in unspecified joint; F17.200 Nicotine dependence, unspecified, uncomplicated; F12.10 Cannabis abuse, uncomplicated; Z86.14 Personal history of Methicillin resistant Staphylococcus aureus infection; Z88.5 Allergy status to narcotic agent; Z88.8 Allergy status to other drugs, medicaments and biological substances; Z88.1 Allergy status to other antibiotic agents; Z82.61 Family history of arthritis; R58 Hemorrhage, not elsewhere classified
CPT/HCPCS: 36415; 72100; 80053; 80307; 81001; 81025; 85025; 93005; 93010; 99284

== ENCOUNTER 2019-10-16 13:27 | Emergency (ER) | payer OTHER ==
[2019-10-16] MEDS ORDERED: VANCOMYCIN HCL INJ 1000 MG VIAL IV ONE (13:38)
--- NOTE | 2019-10-16 13:44 | ER Document Report ---
ED Medical Screen (RME) - General Chief Complaint: Hand Swelling Stated Complaint: RIGHT HAND PAIN Time Seen by Provider: 10/16/19 13:33 Primary Care Provider: HUMAIRA SWANSON NP [Primary Care Provider] - Follow up as needed Notes: 34-year-old female with anxiety presents to the emergency department with a right swollen hand. She was reaching in her make-up bag 2 days ago and stabbed herself with a pimple popping tool. She had swelling but was unable to come in yesterday and the swelling persisted so she sought emergency treatment today. Denies fevers or chills, denies rapid heart rate, denies nausea or vomiting. Patient is able to move her fingers with difficulty and does not have full range of motion. Last tetanus 1 to 2 years ago Stephane: Well-appearing no acute distress, swelling of the right hand to the proximal wrist with an area the size of a dime on the palmar aspect of the middle phalange of the middle finger of the right hand with a small amount of necrosis brisk cap refill, 2+ radial pulse, patient is able to move her fingers I have greeted and performed a rapid initial assessment of this patient. A comprehensive ED assessment and evaluation of the patient, analysis of test results and completion of medical decision making process will be conducted by an additional ED providers. TRAVEL OUTSIDE OF THE [place] IN LAST 30 DAYS: No - Related Data Allergies/Adverse Reactions: tramadol HCl [From Ultram] Allergy (Severe, Verified 10/16/19 13:33) haloperidol [From Haldol] Allergy (Verified 10/16/19 13:33) sulfamethoxazole [From Bactrim] Allergy (Verified 10/16/19 13:33) trimethoprim [From Bactrim] Allergy (Verified 10/16/19 13:33) Past Medical History - Social History Family history: None Pulmonary Medical History: Reports: Hx Bronchitis - Reports history of bronchitis Neurological Medical History: Reports: Hx Migraine Renal/ Medical History: Reports: Hx Ovarian Cysts. Denies: Hx Peritoneal Dialysis GI Medical History: Reports: Hx Gastroesophageal Reflux Disease, Hx Hepatitis - c Skin Medical History: Reports Hx MRSA Psychiatric Medical History: Reports: Hx Anxiety, Hx Bipolar Disorder, Hx Borderline Personality Disorder, Hx Depression, Hx Personality Disorder Infectious Medical History: Reports: Hx Hepatitis - c, Hx MRSA - Immunizations Immunizations up to date: Yes Hx Diphtheria, Pertussis, Tetanus Vaccination: Yes - 2013 Physical Exam - Vital signs Vitals: Temp Pulse Resp BP Pulse Ox 98.2 F 86 18 119/81 96 10/16/19 13:31 10/16/19 13:31 10/16/19 13:31 10/16/19 13:31 10/16/19 13:31 Course - Vital Signs Vital signs: Temp Pulse Resp BP Pulse Ox 98.2 F 86 18 119/81 96 10/16/19 13:31 10/16/19 13:31 10/16/19 13:31 10/16/19 13:31 10/16/19 13:31 Doctor's Discharge - Discharge Referrals: HUMAIRA SWANSON NP [Primary Care Provider] - Follow up as needed
[2019-10-16] MEDS ORDERED: IBUPROFEN 600 MG TABLET PO ONE (14:22)
[2019-10-16 14:29] LABS: ABSOLUTE LYMPHOCYTES (AUTO) 1.2 10^3/uL (0.5-4.7); ABSOLUTE MONOCYTES (AUTO) 0.2 10^3/uL (0.1-1.4); ABSOLUTE NEUT (AUTO) 5.9 10^3/uL (1.7-8.2); BASOPHILS % (AUTO) 0.6 % (0-2); EOSINOPHILS % (AUTO) 0.3 % (0-6); HEMATOCRIT 42.6 % (36.0-47.0); HEMOGLOBIN 14.2 g/dL (12.0-15.5); LYMPHOCYTES % (AUTO) 15.7 % (13-45); MEAN CORPUSCULAR HEMOGLOBIN 27.6 pg (27.0-33.4); MEAN CORPUSCULAR HGB CONC 33.3 g/dL (32.0-36.0); MEAN CORPUSCULAR VOLUME 83 fl (80-97); MONOCYTES % (AUTO) 3.3 % (3-13); PLATELET COUNT 375 10^3/uL (150-450); RED BLOOD COUNT 5.13 10^6/uL (3.72-5.28); RED CELL DISTRIBUTION WIDTH 15.5 % (11.5-14.0); SEGMENTED NEUTROPHILS % (AUTO) 80.1 % (42-78); TOTAL CELLS COUNTED % (AUTO) 100 %; WHITE BLOOD COUNT 7.3 10^3/uL (4.0-10.5)
[2019-10-16] MEDS ORDERED: CEFTRIAXONE 1 GM/D5W RTU 1 GM/50 ML RTUPB IV ONE (14:30)
[2019-10-16 14:40] LABS: APPEARANCE,URINE CLOUDY; BILIRUBIN,URINE NEGATIVE (NEGATIVE); COLOR,URINE YELLOW; GLUCOSE, URINE NEGATIVE (NEGATIVE); KETONES,URINE NEGATIVE (NEGATIVE); LEUKOCYTE ESTERASE,URINE TRACE (NEGATIVE); NITRITE,URINE NEGATIVE (NEGATIVE); PROTEIN,URINE 100 mg/dL (NEGATIVE); URINE SPECIFIC GRAVITY 1.029; UROBILINOGEN,URINE NEGATIVE mg/dL (<2.0)
--- NOTE | 2019-10-16 14:40 | RADIOLOGY REPORT (SQ) ---
EXAM DESCRIPTION: HAND RIGHT 3 VIEWS COMPLETED DATE/TIME: 10/16/2019 2:22 pm REASON FOR STUDY: infection COMPARISON: None. EXAM PARAMETERS: NUMBER OF VIEWS: Three views. TECHNIQUE: AP, lateral and oblique radiographic images acquired of the right hand. LIMITATIONS: None. FINDINGS: MINERALIZATION: Normal. BONES: No acute fracture or dislocation. No worrisome bone lesions. JOINTS: No effusions. SOFT TISSUES: There is soft tissue edema throughout most marked dorsally. OTHER: No other significant finding. IMPRESSION: Diffuse soft tissue swelling. No radiopaque foreign bodies or fractures. TECHNICAL DOCUMENTATION: JOB ID: [id number] [employer]- All Rights Reserved Reading location - IP/workstation name: [email or web address]
[2019-10-16 14:47] LABS: ALBUMIN 4.3 g/dL (3.5-5.0); ALKALINE PHOSPHATASE 101 U/L (38-126); ANION GAP 10 (5-19); ASPARTATE AMINO TRANSFERASE 29 U/L (14-36); BILIRUBIN,DIRECT 0.2 mg/dL (0.0-0.4); BILIRUBIN,TOTAL 0.4 mg/dL (0.2-1.3); BLOOD UREA NITROGEN 11 mg/dL (7-20); CALCIUM 10.1 mg/dL (8.4-10.2); CARBON DIOXIDE 24 mmol/L (22-30); CHLORIDE 107 mmol/L (98-107); GLUCOSE 105 mg/dL (75-110); POTASSIUM 5.1 mmol/L (3.6-5.0); TOTAL PROTEIN 8.8 g/dL (6.3-8.2)
[2019-10-16] MEDS ORDERED: ACETAMINOPHEN 325 MG TABLET PO ONE (15:07)
--- NOTE | 2019-10-16 15:11 | ER Document Report ---
ED General - General Chief Complaint: Hand Swelling Stated Complaint: RIGHT HAND PAIN Time Seen by Provider: 10/16/19 13:33 Primary Care Provider: HUMAIRA SWANSON NP [Primary Care Provider] - Follow up as needed LIZZ HAIRSTON MD [ACTIVE STAFF] - Follow up tomorrow KIMBERLY MAZARIEGOS DO [ACTIVE STAFF] - Follow up tomorrow Notes: Patient is a 34-year-old female who presents to the emergency department with swelling to her right hand. She was itching up into her make-up looking in her make-up bag and had stabbed herself in her right third finger with the pimple popping tool that she uses. Yesterday she noticed some swelling and purulent drainage and states that it had "popped." Patient denies any fevers, body aches, or chills. Patient has a history of IV drug abuse. 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 TRAVEL OUTSIDE OF THE [place] IN LAST 30 DAYS: No - Related Data Allergies/Adverse Reactions: tramadol HCl [From Ultram] Allergy (Severe, Verified 10/16/19 13:33) haloperidol [From Haldol] Allergy (Verified 10/16/19 13:33) sulfamethoxazole [From Bactrim] Allergy (Verified 10/16/19 13:33) trimethoprim [From Bactrim] Allergy (Verified 10/16/19 13:33) Home Medications: PT ALSO TAKE TRAZADONE UNSURE OF DOSAGE Past Medical History - General Information source: Patient - Social History Smoking Status: Current Every Day Smoker Frequency of alcohol use: None Drug Abuse: Marijuana Family History: Arthritis, CAD, CVA, DM, Hyperlipidemia, Hypertension, Malignancy Patient has suicidal ideation: No Patient has homicidal ideation: No Pulmonary Medical History: Reports: Hx Bronchitis - Reports history of bronchitis Neurological Medical History: Reports: Hx Migraine Renal/ Medical History: Reports: Hx Ovarian Cysts. Denies: Hx Peritoneal Dialysis GI Medical History: Reports: Hx Gastroesophageal Reflux Disease, Hx Hepatitis - c Skin Medical History: Reports Hx MRSA Psychiatric Medical History: Reports: Hx Anxiety, Hx Bipolar Disorder, Hx Borderline Personality Disorder, Hx Depression, Hx Personality Disorder Infectious Medical History: Reports: Hx Hepatitis - c, Hx MRSA - Immunizations Immunizations up to date: Yes Hx Diphtheria, Pertussis, Tetanus Vaccination: Yes - 2013 Hx Pneumococcal Vaccination: 09/14/12 Review of Systems - Review of Systems Notes: REVIEW OF SYSTEMS: CONSTITUTIONAL : Denies recent illness. Denies recent unintentional weight loss. Denies fever, chills, or sweats. EENT: Denies eye, ear, throat, or mouth pain, discharge, or symptoms. Denies nasal or sinus congestion. CARDIOVASCULAR: Denies chest pain. RESPIRATORY: Denies shortness of breath, cough, congestion, difficulty tho athing, or wheezing. GASTROINTESTINAL: Denies nausea, vomiting, and diarrhea. Denies abdominal pain. Denies constipation. GENITOURINARY: Denies difficulty urinating, burning, blood in urine, urgency or frequency. MUSCULOSKELETAL: See HPI. SKIN: See HPI. HEMATOLOGIC : Denies easy bruising or bleeding. LYMPHATIC: Denies swollen, painful, enlarged glands. NEUROLOGICAL: Denies no numbness or tingling denies weakness. Denies headache. Denies altered mental status. Denies alteration in speech. PSYCHIATRIC: Denies stress, anxiety, alteration in sleep patterns, or depression. All other systems reviewed and negative. Physical Exam - Vital signs Vitals: Temp Pulse Resp BP Pulse Ox 98.2 F 86 18 119/81 96 10/16/19 13:31 10/16/19 13:31 10/16/19 13:31 10/16/19 13:31 10/16/19 13:31 - Notes Notes: PHYSICAL EXAMINATION: GENERAL: Appears well, healthy, well-nourished, no acute distress. HEAD: Normocephalic, atraumatic. EYES: PERRL, conjunctiva normal, all extraocular movements intact, sclera nonicteric ENT: Moist mucous membranes. NECK: Supple, no noticeable swelling, redness, rash. Normal range of motion. LUNGS: Equal breath sounds bilaterally and clear to auscultation. No wheezes rales or rhonchi. CARDIOVASCULAR: S1-S2, regular rate, regular rhythm. Radial pulses 2+, normal. ABDOMEN: Normoactive bowel sounds. Soft, nontender, no guarding, no rebound tenderness, and no masses palpated. EXTREMITIES: Normal strength and range of motion, no pitting or edema. No cyanosis. NEUROLOGICAL: Moves all extremities upon command. Strength 5/5 in all extremities. PSYCH: Normal mood, normal affect. SKIN: Warm, dry. Purulent drainage noted to right MIP joint sloughing skin. Course - Re-evaluation Re-evalutation: 10/16/19 18:36 There is inflammation of the dorsal aspect of the hand that goes up to the second and third digits. No osteomyelitis noted. These findings are based off of the radiologist interpretation. Hematology does not show a leukocytosis, chemistries show a potassium of 5.1, the patient received IV fluids here in the emergency department to correct that. Urinalysis ordered in triage is unremarkable.I spoke with Dr. Hairston, the orthopedic doctor. He states that he would like her to be on antibiotics and to follow-up with the clinic first thing tomorrow. I discussed this with the patient and she is in agreement with this plan. We will start her on doxycycline. Follow-up precautions were given. Verbal discharge instructions were given to the patient. They verbalized understanding. They are stable for discharge. - Vital Signs Vital signs: Temp Pulse Resp BP Pulse Ox 98.1 F 74 14 119/72 96 10/16/19 18:51 10/16/19 18:51 10/16/19 18:51 10/16/19 18:51 10/16/19 18:51 - Laboratory Result Diagrams: 10/16/19 14:00 10/16/19 14:00 Laboratory results interpreted by me: 10/16/19 10/16/19 10/16/19 14:00 14:00 14:00 RDW 15.5 H Seg Neutrophils % 80.1 H Potassium 5.1 H Total Protein 8.8 H Urine Protein 100 H Ur Leukocyte Esterase TRACE H Urine Ascorbic Acid 40 H Discharge - Discharge Clinical Impression: Abscess Cellulitis Qualifiers: Site of cellulitis: extremity Site of cellulitis of extremity: finger Laterality: right Qualified Code(s): L03.011 - Cellulitis of right finger Condition: Stable Disposition: HOME, SELF-CARE Additional Instructions: You are seen today in the emergency department for swelling and abscess of your hand. Please follow-up with the orthopedic surgeon tomorrow. Call them first thing in the morning and tell them that the surgeon would like to see you in the office. Please continue to keep it wrapped. You are being sent home with a ntibiotics. Please make sure you take all your antibiotics as prescribed. If you have worsening symptoms, please return to the emergency department immediately. Take ibuprofen 600 mg and acetaminophen 1000 mill grams every 6 hours for your pain. Prescriptions: Doxycycline Hyclate 100 mg PO BID #14 capsule Referrals: HUMAIRA SWANSON NP [Primary Care Provider] - Follow up as needed KIMBERLY MAZARIEGOS DO [ACTIVE STAFF] - Follow up tomorrow LIZZ HAIRSTON MD [ACTIVE STAFF] - Follow up tomorrow
[2019-10-16] MEDS ORDERED: NORMAL SALINE 1000 ML 1,000 ML IV ONE (17:31)
--- NOTE | 2019-10-16 17:55 | RADIOLOGY REPORT (SQ) ---
EXAM DESCRIPTION: CT RT UPPER EXTREMITY WITH COMPLETED DATE/TIME: 10/16/2019 5:10 pm REASON FOR STUDY: eval abscess and tendons COMPARISON: MRI from 05/31/2014 and PA, oblique, and lateral views of the right hand from 10/16/2019. TECHNIQUE: Sequential CT images of the right wrist were obtained in the axial plane after the intrav enous administration of 50 mL of Omnipaque 350 intravenous contrast. Coronal and sagittal reformats are reconstructed from the axial images. RADIATION DOSE: DLP 64.74 mGy cm LIMITATIONS: None. FINDINGS: Inflammation of the subcutaneous tissues along the dorsal aspect of the hand that extends up to the 2nd and 3rd digits. There is no associated fracture, rim-enhancing collection, periarticul ar erosion or periarticular osteopenia. There is no abnormality of the flexor and extensor tendons. There is a lucent lesion with a echogenic rim in the lunate that could represent an intraosseous gang lion or a subchondral cyst. The scapholunate distance is normal. IMPRESSION: Inflammation of the subcutaneous lesions along the dorsal aspect of the hand that extend s up to the 2nd and 3rd digits. There is no associated osseous abnormality or rim enhancing collecti on. TECHNICAL DOCUMENTATION: JOB ID: [id number] [employer]- All Rights Reserved Reading location - IP/workstation name: [email or web address]
[2019-10-16 18:53] VITALS: BP 119/72
== END 2019-10-16 18:53 | disposition home or self-care (01) ==
LOC: ER 13:27
DX: L03.011 Cellulitis of right finger (principal); M79.89 Other specified soft tissue disorders; F17.200 Nicotine dependence, unspecified, uncomplicated; Z88.3 Allergy status to other anti-infective agents; Z86.14 Personal history of Methicillin resistant Staphylococcus aureus infection; Z86.19 Personal history of other infectious and parasitic diseases
CPT/HCPCS: 99284; 96361; 96365; 96366; 96367; 36415; 87040; 85025; 81025; 80053; 81001; 73130; 73201; J7030; J3370; J0696

== ENCOUNTER → 2019-12-12 | Outpatient (CLI) | payer OTHER ==
--- NOTE | 2019-12-12 14:06 | WOMENS IMAGING REPORT ---
EXAM DESCRIPTION: 3D DX MAMMO BILAT; U/S BREAST UNILAT LIMITED COMPLETED DATE/TIME: 12/12/2019 1:16 pm; 12/12/2019 1:51 pm REASON FOR STUDY: N63.10 UNSPECIFIED LUMP IN THE RIGHT BREAST, UNSPECIFIED QUADRANT; RT BREAST LUMP N63.10 UNSPECIFIED LUMP IN THE RIGHT BREAST, UNSPECIFIED BEVERLY COMPARISON: None. EXAM PARAMETERS: Standard craniocaudal and mediolateral oblique views of each breast recorded using digital acquisition and breast tomosynthesis. True lateral view right breast. Read with the assistance of CAD: .[employer] Hay Stacker Version 9.2 LIMITATIONS: None. FINDINGS: RIGHT BREAST MASSES: No suspicious masses. CALCIFICATIONS: No new or suspicious calcifications. ARCHITECTURAL DISTORTION: None. ASYMMETRY: None noted. OTHER: No other significant findings. LEFT BREAST MASSES: No suspicious masses. CALCIFICATIONS: No new or suspicious calcifications. ARCHITECTURAL DISTORTION: None. ASYMMETRY: None noted. OTHER: No other significant finding. Ultrasound of the right breast 12 o'clock position demonstrates dense tissue. No solid or cystic mas s. IMPRESSION: No evidence of malignancy. BREAST DENSITY: b. There are scattered areas of fibroglandular density. BIRAD: ASSESSMENT: 1 Negative. RECOMMENDATION: RECOMMENDED FOLLOW UP: Birads 1 or 2: No breast imaging finding to explain the patie nt's presenting complaint. Further intervention should be based on the degree of clinical suspicion. SPECIFIC INTERVENTION/IMAGING/CONSULTATION RECOMMENDED:No additional intervention/ imaging/consultati on needed at this time. COMMUNICATION:The imaging findings were not discussed with the patient. Her referring provider has be en notified of the findings. COMMENT: The patient has been notified of the results by letter per MQSA requirements. Additional no tification policies are in place for contacting patient with suspicious or incomplete findings. Quality ID #[id number]: [employer] recommends an annual screening mammogram for women aged 40 years or over. This facility utilizes a reminder system to ensure that all patients receive reminder letters, and/or direct phone calls for appointments. This includes reminders for routine scr eening mammograms, diagnostic mammograms, or other Breast Imaging Interventions when appropriate. Th is patient will be placed in the appropriate reminder system. TECHNICAL DOCUMENTATION: FINDING NUMBER: (1) ASSESSMENT: (1) JOB ID: [id number] [employer]- All Rights Reserved Reading location - IP/workstation name: [email or web address]
--- NOTE | 2019-12-12 14:06 | WOMENS IMAGING REPORT ---
EXAM DESCRIPTION: 3D DX MAMMO BILAT; U/S BREAST UNILAT LIMITED COMPLETED DATE/TIME: 12/12/2019 1:16 pm; 12/12/2019 1:51 pm REASON FOR STUDY: N63.10 UNSPECIFIED LUMP IN THE RIGHT BREAST, UNSPECIFIED QUADRANT; RT BREAST LUMP N63.10 UNSPECIFIED LUMP IN THE RIGHT BREAST, UNSPECIFIED BEVERLY COMPARISON: None. EXAM PARAMETERS: Standard craniocaudal and mediolateral oblique views of each breast recorded using digital acquisition and breast tomosynthesis. True lateral view right breast. Read with the assistance of CAD: .[employer] - [employer] Route Deliverer Version 9.2 LIMITATIONS: None. FINDINGS: RIGHT BREAST MASSES: No suspicious masses. CALCIFICATIONS: No new or suspicious calcifications. ARCHITECTURAL DISTORTION: None. ASYMMETRY: None noted. OTHER: No other significant findings. LEFT BREAST MASSES: No suspicious masses. CALCIFICATIONS: No new or suspicious calcifications. ARCHITECTURAL DISTORTION: None. ASYMMETRY: None noted. OTHER: No other significant finding. Ultrasound of the right breast 12 o'clock position demonstrates dense tissue. No solid or cystic mas s. IMPRESSION: No evidence of malignancy. BREAST DENSITY: b. There are scattered areas of fibroglandular density. BIRAD: ASSESSMENT: 1 Negative. RECOMMENDATION: RECOMMENDED FOLLOW UP: Birads 1 or 2: No breast imaging finding to explain the patie nt's presenting complaint. Further intervention should be based on the degree of clinical suspicion. SPECIFIC INTERVENTION/IMAGING/CONSULTATION RECOMMENDED:No additional intervention/ imaging/consultati on needed at this time. COMMUNICATION:The imaging findings were not discussed with the patient. Her referring provider has be en notified of the findings. COMMENT: The patient has been notified of the results by letter per MQSA requirements. Additional no tification policies are in place for contacting patient with suspicious or incomplete findings. Quality ID #[id number]: The [employer] recommends an annual screening mammogram for women aged 40 years or over. This facility utilizes a reminder system to ensure that all patients receive reminder letters, and/or direct phone calls for appointments. This includes reminders for routine scr eening mammograms, diagnostic mammograms, or other Breast Imaging Interventions when appropriate. Th is patient will be placed in the appropriate reminder system. TECHNICAL DOCUMENTATION: FINDING NUMBER: (1) ASSESSMENT: (1) JOB ID: [id number] [employer]- All Rights Reserved Reading location - IP/workstation name: [email or web address]
== END ==
LOC: WI 12:52
PROVIDERS: ATTEND Clinical Nurse Specialist Adult Health
DX: R92.2 Inconclusive mammogram (principal)
CPT/HCPCS: 76642; 77066; G0279; 77062

== ENCOUNTER 2020-11-24 12:39 | Inpatient (IN) | payer OTHER ==
[2020-11-24] MEDS ORDERED: VANCOMYCIN HCL INJ 1000 MG VIAL IV ONE ×2 (13:09→19:30)
[2020-11-24] MEDS ORDERED: ONDANSETRON 4 MG TAB.RAPDIS ONE (13:12)
[2020-11-24] MEDS ORDERED: PIPERACILLIN/TAZOBACTAM 3.375 GM VIAL IV ONE ×2 (13:12→19:30)
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
[2020-11-24] MEDS ORDERED: DEXTROSE 40% GEL 15 GM TUBE PO PRN ×5 (14:47→20:27)
--- NOTE | 2020-11-24 15:01 | RADIOLOGY REPORT (SQ) ---
EXAM DESCRIPTION: CHEST SINGLE VIEW IMAGES COMPLETED DATE/TIME: 11/24/2020 2:45 pm REASON FOR STUDY: tachycardia COMPARISON: PA and lateral views of the chest from 03/02/2014. EXAM PARAMETERS: NUMBER OF VIEWS: One view. TECHNIQUE: An AP view of the chest was obtained. RADIATION DOSE: NA LIMITATIONS: None. FINDINGS: LUNGS AND PLEURA: Patchy parenchymal opacities in the left base. The left lateral costoph renic sulcus is blunted. There is no pneumothorax. MEDIASTINUM AND HILAR STRUCTURES: No mediastinal or hilar contour abnormality. HEART AND VASCULAR STRUCTURES: The cardiac silhouette is accentuated by the low inspiratory lung volu mes. BONES: No acute findings. HARDWARE: None in the chest. OTHER: No other finding. IMPRESSION: Patchy parenchymal opacities in the left base - correlation with clinical findings is re commended to exclude a pneumonia. TECHNICAL DOCUMENTATION: JOB ID: [id number] 2010 [employer]- All Rights Reserved Reading location - IP/workstation name: [email or web address]
--- NOTE | 2020-11-24 15:52 | PDOC CONSULTATION ---
Consultation Consult Date: 11/24/20 Provider Consulted: HANNAH MORALES Consult reason:: Soft tissue infection involving the left arm History of Present Illness Admission Date/PCP: [facility] History of Present Illness: HAROON SOTOMAYOR is a 35 year old female Presents emergency department via ground rescue complaining of several day history of a swelling left arm radiating to her. Patient has a long history of IV drug abuse, MRSA, endocarditis, hepatitis, and excessive skin popping who was found to have multiple extensive abscesses in various stages of healing all over her body face breast groin etc. Her left arm above and below the elbow is of erythema, discoloration concerning for abscess. Surgery was consulted. At bedside Dr. Morales performed ultrasonography which demonstrated extensive subcutaneous fluid above and below the elbow consistent with soft tissue infection, consistent with nonconsolidated abscess. ReCommendations were made for patient to be admitted to the medicine service with surgery consulting. Patient needs to be taken to the operating room for drainage of the left arm infection as soon as possible. Her management may be complicated by her use of methamphetamines. Past Medical History Past Medical History: IV drug abuse, hepatitis, MRSA, endocarditis, bipolar disorder, schizophrenia Pulmonary Medical History: Reports: Bronchitis - Reports history of bronchitis Neurological Medical History: Reports: Migraine GI Medical History: Reports: Gastroesophageal Reflux Disease, Hepatitis - c Psychiatric Medical History: Reports: Bipolar Disorder, Depression, Personality Disorder Infectious Medical History: Reports: Methicillin-Resistant Staph Aureus Past Surgical History Past Surgical History: Previous infection drainage Social History Information Source: Patient Smoking Status: Current Some Day Smoker Frequency of Alcohol Use: Rare Hx Recreational Drug Use: Yes Drugs: Cocaine, Heroin, Marijuana Hx Prescription Drug Abuse: Yes - Dilaudid Past Social History Note: Patient is unreliable due to personality disorder. She has a history of IV drug abuse, hepatitis, endocarditis. She is currently popping drugs under the skin all over her body. Family History Family History: None, Arthritis, CAD, CVA, DM, Hyperlipidemia, Hypertension, Malignancy Parental Family History Reviewed: No Children Family History Reviewed: No Sibling(s) Family History Reviewed.: No Medication/Allergy Home Medications: Omeprazole 40 mg PO BID 08/31/16 Sertraline HCl [Zoloft] 200 mg PO DAILY 08/31/16 Gabapentin [Neurontin 300 mg Capsule] 300 mg PO Q12 #60 capsule 06/21/18 Doxycycline Hyclate 100 mg PO BID #14 capsule 10/16/19 Trazodone HCl 10/16/19 Allergies/Adverse Reactions: tramadol HCl [From Ultram] Allergy (Severe, Verified 11/24/20 14:17) haloperidol [From Haldol] Allergy (Verified 11/24/20 14:17) sulfamethoxazole [From Bactrim] Allergy (Verified 11/24/20 14:17) trimethoprim [From Bactrim] Allergy (Verified 11/24/20 14:17) Review of Systems ROS unobtainable: Due to mental status Physical Exam Vital Signs: Temp Pulse Resp BP Pulse Ox 98.6 F 38 H 81/52 L 99 11/24/20 13:08 11/24/20 14:40 11/24/20 14:40 11/24/20 14:40 Intake & Output 11/23/20 11/24/20 11/25/20 06:59 06:59 06:59 Weight 72.575 kg General appearance: PRESENT: mild distress Head exam: PRESENT: normocephalic Respiratory exam: PRESENT: rhonchi Cardiovascular exam: PRESENT: tachycardia Breast: PRESENT: Other - Rash, mild erythema but no fluctuance Extremities exam: PRESENT: other - Skin lesions all over the extremities. Erythematous swollen very tender, mottled discoloration to the skin below and above the left elbow laterally Neurological exam: PRESENT: oriented to person, oriented to place, oriented to time, oriented to situation Psychiatric exam: PRESENT: anxious, appropriate affect Skin exam: PRESENT: other - Extensive pustules about all the extremities Results Impressions: Chest X-Ray 11/24/20 13:59 IMPRESSION: Patchy parenchymal opacities in the left base - correlation with clinical findings is recommended to exclude a pneumonia. Assessment & Plan - Diagnosis (1) Abscess of left upper arm and forearm Is this a current diagnosis for this admission?: Yes Plan: Impression: Superficial and deep infection involving the left upper extremity with cellulitis, abscess, possible fasciitis in high risk smoking methamphetamine abusing skin popping hepatitis positive patient Plan: 1. We will check Covid status 2. Admit to medicine service, with surgery consulting 3. We will take patient to the operating room for drainage left upper extremity, in conjunction with fluid resuscitation central line placement surveillance antibiotics etc. 4. I discussed the above with the medical staff in the emergency department. (2) IV drug user Is this a current diagnosis for this admission?: Yes (3) Sepsis Qualifiers: Sepsis type: sepsis due to unspecified organism Sepsis acute organ dysfunction status: unspecified Qualified Code(s): A41.9 - Sepsis, unspecified organism Is this a current diagnosis for this admission?: Yes (4) Bipolar disorder Qualifiers: Active/Remission status: remission status unspecified Qualified Code(s): F31.9 - Bipolar disorder, unspecified Is this a current diagnosis for this admission?: Yes (5) Hepatitis C Qualifiers: Viral hepatitis chronicity: chronic Hepatic coma status: without hepatic coma Qualified Code(s): B18.2 - Chronic viral hepatitis C (6) Opiate abuse, episodic Is this a current diagnosis for this admission?: Yes (7) Tobacco abuse Is this a current diagnosis for this admission?: Yes
[2020-11-24] MEDS ORDERED: LIDOCAINE 0.5% INJ-PF (5 MG/ML) 50 ML SDV ONE (16:01)
[2020-11-24] MEDS ORDERED: FENTANYL CITRATE INJ/PF 100 MCG/2 ML AMPUL ONE (16:02)
[2020-11-24] MEDS ORDERED: LIDOCAINE 1% INJ-PF (10 MG/ML) 30 ML SDV ONE (16:02)
[2020-11-24] MEDS ORDERED: MIDAZOLAM 2 MG/2 ML INJ ONE (16:02)
[2020-11-24] MEDS ORDERED: ONDANSETRON HCL INJ/PF 4 MG/2 ML SDV ONE (16:02)
[2020-11-24] MEDS ORDERED: PROPOFOL INJ 200 MG/20 ML VIAL IV ONE (16:03)
[2020-11-24] MEDS ORDERED: BUPIVACAINE HCL 0.25 % INJ/PF (2.5 MG/1 ML) 30 ML VIAL ONE (16:41)
[2020-11-24] MEDS ORDERED: ROCURONIUM BROMIDE INJ 50 MG/5 ML VIAL IV ONE (17:00)
[2020-11-24] MEDS ORDERED: SUCCINYLCHOLINE CHLORIDE INJ 200 MG/10 ML VIAL ONE (17:00)
--- NOTE | 2020-11-24 17:53 | Operative Report ---
Operative Report DATE OF SURGERY: 11/24/20 PREOPERATIVE DIAGNOSIS: 1. Deep soft tissue infection, extensive, left upper e xtremity. 2. Septic shock. 3. IV drug abuser. 4. Smoker POSTOPERATIVE DIAGNOSIS: Same with stents of fasciitis, myositis of the left upper extremity OPERATION: 1. Ultrasound directed insertion of right common femoral vein triple-lumen central venous access catheter. 2. Filleting of left upper extremity from the shoulder to the wrist, with debridement of skin, subcutaneous tissue, fascia and muscle involving the biceps brachii, and extensor radialis muscle. 3. Placement of Kim drain through counterincision posterior lateral aspect left arm SURGEON: HANNAH MURRELL ANESTHESIA: GA TISSUE REMOVED OR ALTERED: Skin, subcutaneous tissue fascia fragments and muscle fibers COMPLICATIONS: None ESTIMATED BLOOD LOSS: 40 cc INTRAOPERATIVE FINDINGS: See below PROCEDURE: Patient was taken to the preop holding area to the main operating room where she was placed supine position. The right groin was exposed, clipped of hair, prepped and draped in sterile fashion. Surgical timeout was conducted. 1% lidocaine was injected into the skin, and using ultrasound as a real-time guide, a triple-lumen central venous access catheter was threaded uneventfully into the right common femoral vein without difficulty. There was excellent blood flow through all 3 lm. Catheter was flushed with dilute heparinized saline, secured to the skin with Biopatch and 2-0 silk suture and sterile dressing. Patient tolerated procedure well. The patient now underwent endotracheal intubation. Of note during induction, the patient had an episode of emesis, but there was no evidence of aspiration. The intubation was witnessed by Dr. Murrell. The left arm is now isolated, and prepped from the chest wall all the way to the fingers. A second timeout was conducted. Based on the preoperative ultrasound performed by Dr. uMrrell, and wounds at the antecubita fossa draining pus, I elected to fillet the entire left arm open. Using a #10 blade, an incision was made anterior lateral aspect of the left extending from the left inferior deltoid edge across the antecubital fossa and down the anterior lateral aspect of the left forearm all the way to the wrist. A section of necrotic skin was excised from the proximal wrist approximately 3 x 3 cm. Significant amount of mildly foul-smelling pus was released, Gram stain and sent for culture and sensitivity. The fascia was opened with a knife, and pus drained from the subcutaneous space, with copious amounts of pus underneath the fascia. The fascia, which was vascularized, was broken up bluntly over the underlying muscle. The biceps brachii muscle was opened along its septum, so that both heads were , there was pus all the way down to the bone. Distally all pockets of laterally and medially were broken up. A counterincision was made over the posterior lateral aspect of the elbow, and a large Tollhouse drain was placed the principal incision, through the counterincision and tied in a knot. We now irrigated the entire wound with 5-1/2 L of pulse lavage saline. Hemostasis was checked, and only few small venous bleeders were cauterized. Of note there were no named arteries, veins, or nerves divided during this procedure. At this point I felt the operation was complete. Betadine soaked Curlex was placed in the recess of the wound, then dry Curlex, and dry ABDs blue towels and Gene wrap supplied. Patient tolerated procedure well, remained intubated, and eventually taken to the intensive care unit under the care of Dr. Narvaez in guarded condition
[2020-11-24] MEDS ORDERED: DEXTROSE 50%-WATER 25 GM/50 ML DISP.SYRIN IV PRN ×4 (17:56→20:27)
[2020-11-24] MEDS ORDERED: PROPOFOL 1,000 MG/100 ML INFUS..BTL IV PRN (17:56)
[2020-11-24] MEDS ORDERED: ACETAMINOPHEN 325 MG TABLET NG PRN (17:56)
[2020-11-24] MEDS ORDERED: GLUCAGON,HUMAN RECOMB 1 MG INJ SUBCUT PRN (17:56)
[2020-11-24] MEDS ORDERED: NORMAL SALINE 1000 ML 1,000 ML IV PRN (17:56)
[2020-11-24] MEDS ORDERED: IPRATROPIUM/ALBUTEROL 0.5-2.5 MG/3 ML AMPUL NEB PRN (17:56)
--- NOTE | 2020-11-24 17:59 | EKG REPORT ---
SEVERITY:- BORDERLINE ECG - SINUS TACHYCARDIA LOW VOLTAGE THROUGHOUT INFERIOR Q WAVES, PROBABLY NORMAL VARIATION : Confirmed by: Lacy Sagastume MD 24-Nov-2020 17:59:19
[2020-11-24] MEDS ORDERED: PHARMACY COMMUNICATION ORDER MC NR (18:00)
--- NOTE | 2020-11-24 18:24 | CRITICAL CARE ADMISSION REPORT ---
HPI Date:: 11/24/20 Time:: 18:00 Reason for ICU Reason:: Intubated and in septic shock Admission Date/Time & PCP: Admission Date/Time: Primary Care Provider: [facility] HPI: HAROON SOTOMAYOR is a 35 year old female Presents emergency department via ground rescue complaining of several day history of a swelling left arm radiating to her. Patient has a long history of IV drug abuse, MRSA, endocarditis, hepatitis, and excessive skin popping who was found to have multiple extensive abscesses in various stages of healing all over her body face breast groin etc. Her left arm above and below the elbow is of er ythema, discoloration concerning for abscess. Surgery was consulted. At bedside Dr. Murrell performed ultrasonography which demonstrated extensive subcutaneous fluid above and below the elbow consistent with soft tissue infection, consistent with nonconsolidated abscess. ReCommendations were made for patient to be admitted to the medicine service with surgery consulting. Patient needs to be taken to the operating room for drainage of the left arm infection as soon as possible. Her management may be complicated by her use of methamphetamines. History obtained from:: Old records and Dr. Murrell. - Diagnosis/Plan (1) Septic shock Is this a current diagnosis for this admission?: Yes Plan: She is in need of rescusitaion with more fluid. Does not need pressors now as her MAP is 70. (2) Abscess of left upper arm and forearm Is this a current diagnosis for this admission?: Yes Plan: The cause of her sepsis which has been I&D'd in OR (3) IV drug user Is this a current diagnosis for this admission?: Yes Plan: Need to cover for GNR and MRSA pending cultures. (4) Anxiety and depression Is this a current diagnosis for this admission?: Yes Plan: Present as a baseline Plan Summary: She needs more fluid, does not need levophed. Extubate when stable. Past Medical History Pulmonary Medical History: Reports: Bronchitis - Reports history of bronchitis Neurological Medical History: Reports: Migraine GI Medical History: Reports: Gastroesophageal Reflux Disease, Hepatitis - c Psychiatric Medical History: Reports: Bipolar Disorder, Depression, Personality Disorder Infectious Medical History: Reports: Methicillin-Resistant Staph Aureus Social/Family History - Social History Smoking Status: Current Some Day Smoker Frequency of Alcohol Use: Rare Hx Recreational Drug Use: Yes Drugs: Cocaine, Heroin, Marijuana Hx Prescription Drug Abuse: Yes - Dilaudid - Medication/Allergies Home Medications: Omeprazole 40 mg PO BID 08/31/16 Sertraline HCl [Zoloft] 200 mg PO DAILY 08/31/16 Gabapentin [Neurontin 300 mg Capsule] 300 mg PO Q12 #60 capsule 06/21/18 Doxycycline Hyclate 100 mg PO BID #14 capsule 10/16/19 Trazodone HCl 10/16/19 Allergies/Adverse Reactions: tramadol HCl [From Ultram] Allergy (Severe, Verified 11/24/20 14:17) haloperidol [From Haldol] Allergy (Verified 11/24/20 14:17) sulfamethoxazole [From Bactrim] Allergy (Verified 11/24/20 14:17) trimethoprim [From Bactrim] Allergy (Verified 11/24/20 14:17) Review of Systems ROS unobtainable: Due to endotracheal tube Physical Exam Vital Signs: Temp Pulse Resp BP Pulse Ox 98.6 F 33 H 77/50 L 98 11/24/20 13:08 11/24/20 16:01 11/24/20 16:00 11/24/20 16:01 Intake & Output 11/23/20 11/24/20 11/25/20 06:59 06:59 06:59 Weight 72.575 kg Weight/Height Weight 72.575 kg Height 5 ft 4 in General appearance: PRESENT: no acute distress Head exam: PRESENT: atraumatic, normocephalic Eye exam: PRESENT: conjunctiva pink, EOMI, PERRLA. ABSENT: scleral icterus Ear exam: ABSENT: bleeding, drainage, normal external ear exam, TM's normal bilaterally, other Mouth exam: PRESENT: moist, tongue midline Respiratory exam: PRESENT: clear to auscultation estelle. ABSENT: rales, rhonchi, wheezes Cardiovascular exam: PRESENT: RRR, tachycardia. ABSENT: diastolic murmur, rubs, systolic murmur GI/Abdominal exam: PRESENT: normal bowel sounds, soft. ABSENT: distended, guarding, mass, organolmegaly, rebound, tenderness Gentrourinary exam: PRESENT: indwelling catheter Extremities exam: PRESENT: other - L arm is wrapped sterilly after I&D. Multiple areas of crusted old skin popping sites. Many Neurological exam: PRESENT: other - Sedated Skin exam: PRESENT: mottled, other - Multiple areas of old, crusted skin popping sites. Tubes/Lines: PRESENT: Endotracheal Tube, Central Line Laboratory/Radiographs Laboratory Results: None Impressions: Chest X-Ray 11/24/20 13:59 IMPRESSION: Patchy parenchymal opacities in the left base - correlation with clinical findings is recommended to exclude a pneumonia. All labs, radiographs, diagnostic studies and EKGs were personally reviewed: Yes In addition, reports of radiographic and diagnostic studies were read: Yes Critical Time Critical Time (minutes): 40 -: The care of a critically ill patient is dynamic. This note represents a static moment in the admission process. Orders and treatments may be given simultaneously and urgently, and time is not surgical device sales representative of the treatment process. This patient requires Critical Care secondary to life threatening organ or limb dysfunction. Without Critical Care services, the patient is at risk for increased mortality and morbidity.
[2020-11-24] MEDS ORDERED: LINEZOLID 600 MG/300 ML RTUPB IV SCH (18:30)
--- NOTE | 2020-11-24 18:42 | Progress Note ---
Provider Note Provider Note: I was asked to admit patient to floor, when I went to ED I was told by primary nurse that patient was in OR and intubated, I contacted ED charge nurse again at 6:40 PM to see if patient was back, but I was told that patient is still in OR and remains intubated and plan is to keep her intubated overnight as she will need more I&D's tomorrow, patient currently admitted under ICU care. Please contact us back again if patient is to be admitted to the floor. Thank you
--- NOTE | 2020-11-24 18:52 | RADIOLOGY REPORT (SQ) ---
EXAM DESCRIPTION: CHEST SINGLE VIEW IMAGES COMPLETED DATE/TIME: 11/24/2020 3:27 pm REASON FOR STUDY: Check ETT placement COMPARISON: 11/24/2020 EXAM PARAMETERS: NUMBER OF VIEWS: One view. TECHNIQUE: Single frontal radiographic view of the chest acquired. RADIATION DOSE: NA LIMITATIONS: External leads partially obscure underlying structures. FINDINGS: LUNGS AND PLEURA: Lungs are hypoinflated. There is some progression in bilateral opacitie s, particularly on the right. Probable small right pleural effusion. No pneumothorax identified. MEDIASTINUM AND HILAR STRUCTURES: No masses. Contour normal. HEART AND VASCULAR STRUCTURES: Heart is normal in size given the AP technique and hypoinflation. Iggy e prominence of the central vasculature. BONES: No acute findings. HARDWARE: Interval intubation with endotracheal tube tip projecting approximately 2.3 cm above the ca kelly. OTHER: No other significant finding. IMPRESSION: 1. Endotracheal tube tip projects approximately 2.3 cm above the jackelyn. 2. Some progression in bilateral opacities, particularly on the right with possible small right pleu ral effusion. TECHNICAL DOCUMENTATION: JOB ID: [id number] [employer]- All Rights Reserved Reading location - IP/workstation name: [email or web address]
[2020-11-24 19:02] LABS: HEMATOCRIT 33.2 % (36.0-47.0); MEAN CORPUSCULAR HEMOGLOBIN 27.3 pg (27.0-33.4); MEAN CORPUSCULAR HGB CONC 33.1 g/dL (32.0-36.0); MEAN CORPUSCULAR VOLUME 83 fl (80-97); RED BLOOD COUNT 4.02 10^6/uL (3.72-5.28); RED CELL DISTRIBUTION WIDTH 14.5 % (11.5-14.0); WHITE BLOOD COUNT 19.3 10^3/uL (4.0-10.5)
[2020-11-24 19:07] LABS: INTERNATIONAL RATION (INR) 1.66; PROTHROMBIN TIME 19.7 SEC (11.4-15.4)
[2020-11-24 19:22] LABS: ALKALINE PHOSPHATASE 151 U/L (38-126); ANION GAP 12 (5-19); ASPARTATE AMINO TRANSFERASE 29 U/L (14-36); BILIRUBIN,DIRECT 1.3 mg/dL (0.0-0.4); BILIRUBIN,TOTAL 1.5 mg/dL (0.2-1.3); BLOOD UREA NITROGEN 30 mg/dL (7-20); CARBON DIOXIDE 23 mmol/L (22-30); CHLORIDE 98 mmol/L (98-107); POTASSIUM 3.4 mmol/L (3.6-5.0); TOTAL PROTEIN 4.7 g/dL (6.3-8.2)
[2020-11-24 19:35] LABS: ABSOLUTE LYMPHOCYTES# (MANUAL) 0.6 10^3/uL (0.5-4.7); ABSOLUTE MONOCYTES # (MANUAL) 1.2 10^3/uL (0.1-1.4); BASOPHILS % (MANUAL) 0 % (0-2); EOSINOPHILS % (MANUAL) 1 % (0-6); GLUCOSE 44 mg/dL (75-110); LYMPHOCYTES % (MANUAL) 3 % (13-45); MONOCYTES % (MANUAL) 6 % (3-13); SEGMENTED NEUTROPHILS % (MAN) 90 % (42-78); TOTAL CELLS COUNTED 100
[2020-11-24 19:37] LABS: ANISOCYTOSIS SLIGHT; PLATELET CLUMPS PRESENT; PLATELET COMMENT ADEQUATE; PLATELET COUNT 275 10^3/uL (150-450)
[2020-11-24 19:41] LABS: CALCIUM 6.7 mg/dL (8.4-10.2)
[2020-11-24 20:19] LABS: HEMATOCRIT 30.2 % (36.0-47.0); HEMOGLOBIN 9.8 g/dL (12.0-15.5); MEAN CORPUSCULAR HEMOGLOBIN 27.3 pg (27.0-33.4); MEAN CORPUSCULAR HGB CONC 32.4 g/dL (32.0-36.0); MEAN CORPUSCULAR VOLUME 84 fl (80-97); RED BLOOD COUNT 3.59 10^6/uL (3.72-5.28); RED CELL DISTRIBUTION WIDTH 14.9 % (11.5-14.0); WHITE BLOOD COUNT 21.1 10^3/uL (4.0-10.5)
[2020-11-24 20:21] LABS: ARTERIAL BLOOD BASE EXCESS -8.7 mmol/L; ARTERIAL BLOOD H2CO3 2.51 mmol/L (1.05-1.35); ARTERIAL BLOOD HCO3 22.7 mmol/L (20-24); ARTERIAL BLOOD O2 SATURATION 70.7 % (94-98); ARTERIAL BLOOD PO2 52.9 mmHg (80-100); ARTERIAL BLOOD TOTAL CO2 25.3 mmol/L (21-25)
[2020-11-24] MEDS ORDERED: DEXTROSE 5%-LACTATED RINGERS 1,000 ML IV PRN (20:21)
--- NOTE | 2020-11-24 20:23 | RADIOLOGY REPORT (SQ) ---
XR ABDOMEN 1 VIEW (KUB) HISTORY: Nasogastric tube placement. COMPARISON: None. FINDINGS: Nasogastric tube side-port and tip overlies the stomach. There is a nonspecific bowel gas pattern. No evidence of pneumoperitoneum. The visualized lungs are clear. IMPRESSION: Nasogastric tube tip overlies the stomach.
[2020-11-24] MEDS ORDERED: GLUCAGON,HUMAN RECOMB 1 MG INJ IM PRN (20:27)
[2020-11-24 20:32] LABS: ANION GAP 9 (5-19); ARTERIAL BLOOD FIO2 30%; BLOOD UREA NITROGEN 27 mg/dL (7-20); CARBON DIOXIDE 22 mmol/L (22-30); CHLORIDE 102 mmol/L (98-107); GLUCOSE 71 mg/dL (75-110); POTASSIUM 3.4 mmol/L (3.6-5.0)
[2020-11-24 20:35] LABS: ARTERIAL BLOOD PCO2 83.3 mmHg (35-45); ARTERIAL BLOOD PH 7.05 (7.35-7.45)
[2020-11-24 20:38] LABS: ABSOLUTE LYMPHOCYTES# (MANUAL) 0.8 10^3/uL (0.5-4.7); ABSOLUTE MONOCYTES # (MANUAL) 2.1 10^3/uL (0.1-1.4); BAND NEUTROPHILS % (MANUAL) 12 % (3-5); BASOPHILS % (MANUAL) 0 % (0-2); EOSINOPHILS % (MANUAL) 0 % (0-6); LYMPHOCYTES % (MANUAL) 4 % (13-45); MONOCYTES % (MANUAL) 10 % (3-13); SEGMENTED NEUTROPHILS % (MAN) 74 % (42-78); TOTAL CELLS COUNTED 100
[2020-11-24] MEDS: FAMOTIDINE INJ/PF 20 MG/2 ML SDV IV SCH ×2 (20:38→23:03)
[2020-11-24 20:40] LABS: ANISOCYTOSIS SLIGHT; TARGET CELLS SLIGHT
[2020-11-24 20:41] LABS: PLATELET CLUMPS PRESENT; PLATELET COMMENT ADEQUATE
[2020-11-24 20:42] LABS: PLATELET COUNT 251 10^3/uL (150-450)
[2020-11-24 20:54] LABS: URINE BARBITURATES SCREEN NEGATIVE; URINE BENZODIAZEPINES SCREEN NEGATIVE; URINE COCAINE SCREEN NEGATIVE; URINE MARIJUANA (THC) SCREEN NEGATIVE; URINE METHADONE SCREEN NEGATIVE; URINE PHENCYCLIDINE SCREEN NEGATIVE
[2020-11-24] MEDS ORDERED: ACETAMINOPHEN SUSP 160 MG/5 ML ORAL SYRING PO PRN (21:11)
[2020-11-24] MEDS ORDERED: POTASSIUM CHLORIDE 20 MEQ PACKET PO ONE (22:00)
[2020-11-24] MEDS: LINEZOLID 600 MG/300 ML RTUPB IV SCH (22:15)
[2020-11-24] MEDS: ALBUMIN HUMAN 12.5 GM/50 ML RTUINJ IV SCH (23:02)
[2020-11-25 00:12] LABS: ARTERIAL BLOOD BASE EXCESS -9.4 mmol/L; ARTERIAL BLOOD FIO2 80%; ARTERIAL BLOOD H2CO3 1.66 mmol/L (1.05-1.35); ARTERIAL BLOOD HCO3 19.4 mmol/L (20-24); ARTERIAL BLOOD O2 SATURATION 95.6 % (94-98); ARTERIAL BLOOD PCO2 55.2 mmHg (35-45); ARTERIAL BLOOD PO2 98.9 mmHg (80-100); ARTERIAL BLOOD TOTAL CO2 21.1 mmol/L (21-25)
[2020-11-25 00:13] LABS: ARTERIAL BLOOD PH 7.16 (7.35-7.45)
[2020-11-25] MEDS ORDERED: RINGERS SOLUTION,LACTATED 1,000 ML IV ONE ×2 (00:30→09:30)
[2020-11-25] MEDS ORDERED: SODIUM BICARBONATE 8.4% INJ 50 MEQ/50 ML DISP.SYRIN IV ONE (00:45)
[2020-11-25] MEDS: ALBUMIN HUMAN 12.5 GM/50 ML RTUINJ IV SCH ×5 (00:48→23:13)
[2020-11-25] MEDS ORDERED: NOREPINEPHRINE BITARTRATE INJ/PF 4 MG/4 ML SDV IV ONE ×2 (01:48→07:24)
[2020-11-25] MEDS ORDERED: RINGERS SOLUTION,LACTATED 1,000 ML IV PRN ×2 (01:50→11:28)
[2020-11-25] MEDS ORDERED: DEXTROSE 5%-WATER 250 ML with NOREPINEPHRINE BITARTRATE 4 MG IV PRN ×4 (01:51→09:36)
--- NOTE | 2020-11-25 01:55 | RADIOLOGY REPORT (SQ) ---
EXAM DESCRIPTION: Site: CT HEAD WITHOUT RP: CT HEAD WITHOUT IV CONTRAST CLINICAL HISTORY: 35 years Female; non-responsive after anesthesia; TECHNIQUE: Noncontrast CT head. All CT scans at this facility use dose modulation, iterative reconstruction, and/or weight based dosing when appropriate to reduce radiation dose to as low as reasonably achievable. COMPARISON: CT 07/12/2016 FINDINGS: Brain: Gonsalves matter, white matter, ventricles, and cisterns are within normal limits. No acute hemorrhage or mass effect. Sinuses: Visualized portions of paranasal sinuses and mastoids are clear. Calvarium: No acute calvarial fractures or focal lesion. Endotracheal and orogastric tubes are partially visualized. IMPRESSION: 1. No acute intracranial findings.
[2020-11-25] MEDS: DEXTROSE 5%-LACTATED RINGERS 1,000 ML IV PRN (02:28)
[2020-11-25] MEDS: RINGERS SOLUTION,LACTATED 1,000 ML IV PRN ×4 (02:38→23:36)
[2020-11-25 04:10] LABS: INTERNATIONAL RATION (INR) 1.88; PROTHROMBIN TIME 21.7 SEC (11.4-15.4)
[2020-11-25 04:13] LABS: HEMATOCRIT 31.3 % (36.0-47.0); MEAN CORPUSCULAR HEMOGLOBIN 26.6 pg (27.0-33.4); MEAN CORPUSCULAR HGB CONC 32.1 g/dL (32.0-36.0); MEAN CORPUSCULAR VOLUME 83 fl (80-97); PLATELET COUNT 250 10^3/uL (150-450); RED BLOOD COUNT 3.78 10^6/uL (3.72-5.28); WHITE BLOOD COUNT 22.3 10^3/uL (4.0-10.5)
[2020-11-25 04:40] LABS: ALBUMIN 2.1 g/dL (3.5-5.0); ALKALINE PHOSPHATASE 91 U/L (38-126); ANION GAP 12 (5-19); ASPARTATE AMINO TRANSFERASE 33 U/L (14-36); BILIRUBIN,DIRECT 1.5 mg/dL (0.0-0.4); BILIRUBIN,TOTAL 1.9 mg/dL (0.2-1.3); BLOOD UREA NITROGEN 28 mg/dL (7-20); CARBON DIOXIDE 22 mmol/L (22-30); CHLORIDE 101 mmol/L (98-107); GLUCOSE 130 mg/dL (75-110); POTASSIUM 3.7 mmol/L (3.6-5.0); TOTAL PROTEIN 4.4 g/dL (6.3-8.2)
[2020-11-25 04:56] LABS: CALCIUM 6.5 mg/dL (8.4-10.2)
[2020-11-25] MEDS ORDERED: MAGNESIUM SULFATE 4 GM/100 ML RTUPB IV ONE ×2 (05:58→06:26)
[2020-11-25 07:19] LABS: ARTERIAL BLOOD BASE EXCESS -4.3 mmol/L; ARTERIAL BLOOD H2CO3 1.09 mmol/L (1.05-1.35); ARTERIAL BLOOD HCO3 20.5 mmol/L (20-24); ARTERIAL BLOOD O2 SATURATION 98.8 % (94-98); ARTERIAL BLOOD PCO2 36.2 mmHg (35-45); ARTERIAL BLOOD PH 7.37 (7.35-7.45); ARTERIAL BLOOD PO2 147.2 mmHg (80-100); ARTERIAL BLOOD TOTAL CO2 21.6 mmol/L (21-25)
[2020-11-25 07:22] LABS: ARTERIAL BLOOD FIO2 80%
[2020-11-25] MEDS: DEXTROSE 5%-WATER 250 ML with NOREPINEPHRINE BITARTRATE 4 MG IV PRN ×6 (07:33→19:09)
[2020-11-25] MEDS ORDERED: HYDROMORPHONE HCL INJ/PF 2 MG/ML AMPULE IV ONE (07:41)
--- NOTE | 2020-11-25 08:13 | PDOC PROGRESS REPORT ---
Subjective Date:: 11/25/20 Subjective:: Intubated, fully awake, responsive Reason For Visit: SEPTIC SHOCK. CELLULITIS. IVDA. INTUBATED POST OP. Physical Exam Vital Signs: Temp Pulse Resp BP Pulse Ox 99.5 F 122 H 22 H 95/66 L 98 11/25/20 07:18 11/25/20 07:34 11/25/20 07:34 11/25/20 07:18 11/25/20 07:34 Intake & Output 11/24/20 11/25/20 11/26/20 06:59 06:59 06:59 Intake Total 3540 Output Total 360 100 Balance 3180 -100 Weight 72.575 kg General appearance: PRESENT: mild distress, thin Extremities exam: PRESENT: other - Left upper extremity = viable, skin pink, large surgical wound extending from shoulder down to just proximal to the wrist with exposed muscle belly and fascia, all tissues are viable, no odor, no drainage, all tissues pink Results Laboratory Results: 11/25/20 03:50 11/25/20 03:50 11/24/20 11/24/20 11/24/20 18:30 18:30 18:30 WBC 19.3 H RBC 4.02 Hgb 11.0 L Hct 33.2 L MCV 83 MCH 27.3 MCHC 33.1 RDW 14.5 H Plt Count 275 Seg Neutrophils % Not Reportable Carbonic Acid HCO3/H2CO3 Ratio ABG pH ABG pCO2 ABG pO2 ABG HCO3 ABG O2 Saturation ABG Base Excess FiO2 Sodium 132.9 L Potassium 3.4 L Chloride 98 Carbon Dioxide 23 Anion Gap 12 BUN 30 H Creatinine 2.54 H Est GFR ( Amer) 26 L Glucose 44 L Lactic Acid 3.6 H Calcium 6.7 L* Magnesium Total Bilirubin 1.5 H AST 29 Alkaline Phosphatase 151 H Total Protein 4.7 L Albumin 2.0 L 11/24/20 11/24/20 11/24/20 19:54 19:54 19:54 WBC 21.1 H RBC 3.59 L Hgb 9.8 L Hct 30.2 L MCV 84 MCH 27.3 MCHC 32.4 RDW 14.9 H Plt Count 251 Seg Neutrophils % Not Reportable Carbonic Acid 2.51 H HCO3/H2CO3 Ratio 9:1 ABG pH 7.05 L* ABG pCO2 83.3 H* ABG pO2 52.9 L ABG HCO3 22.7 ABG O2 Saturation 70.7 L ABG Base Excess -8.7 FiO2 30% Sodium Potassium Chloride Carbon Dioxide Anion Gap BUN Creatinine Est GFR ( Amer) Glucose Lactic Acid 3.5 H Calcium Magnesium Total Bilirubin AST Alkaline Phosphatase Total Protein Albumin 11/24/20 11/24/20 11/24/20 19:54 22:55 23:38 WBC RBC Hgb Hct MCV MCH MCHC RDW Plt Count Seg Neutrophils % Carbonic Acid 1.66 H HCO3/H2CO3 Ratio 11:1 ABG pH 7.16 L* ABG pCO2 55.2 H ABG pO2 98.9 ABG HCO3 19.4 L ABG O2 Saturation 95.6 ABG Base Excess -9.4 FiO2 80% Sodium 133.2 L Potassium 3.4 L Chloride 102 Carbon Dioxide 22 Anion Gap 9 BUN 27 H Creatinine 2.27 H Est GFR ( Amer) 29 L Glucose 71 L Lactic Acid 4.8 H Calcium 6.0 L* Magnesium Total Bilirubin AST Alkaline Phosphatase Total Protein Albumin 11/25/20 11/25/20 11/25/20 03:50 03:50 03:50 WBC 22.3 H RBC 3.78 Hgb 10.0 L Hct 31.3 L MCV 83 MCH 26.6 L MCHC 32.1 RDW 15.0 H Plt Count 250 Seg Neutrophils % Carbonic Acid HCO3/H2CO3 Ratio ABG pH ABG pCO2 ABG pO2 ABG HCO3 ABG O2 Saturation ABG Base Excess FiO2 Sodium 134.6 L Potassium 3.7 Chloride 101 Carbon Dioxide 22 Anion Gap 12 BUN 28 H Creatinine 2.01 H Est GFR ( Amer) 34 L Glucose 130 H Lactic Acid Calcium 6.5 L* Magnesium 1.1 L* Total Bilirubin 1.9 H AST 33 Alkaline Phosphatase 91 Total Protein 4.4 L Albumin 2.1 L 11/25/20 06:50 WBC RBC Hgb Hct MCV MCH MCHC RDW Plt Count Seg Neutrophils % Carbonic Acid 1.09 HCO3/H2CO3 Ratio 18:1 ABG pH 7.37 ABG pCO2 36.2 ABG pO2 147.2 H ABG HCO3 20.5 ABG O2 Saturation 98.8 H ABG Base Excess -4.3 FiO2 80% Sodium Potassium Chloride Carbon Dioxide Anion Gap BUN Creatinine Est GFR ( Amer) Glucose Lactic Acid Calcium Magnesium Total Bilirubin AST Alkaline Phosphatase Total Protein Albumin 11/24/20 18:30 Creatine Kinase 155 H Impressions: KUB X-Ray 11/24/20 17:59 IMPRESSION: Nasogastric tube tip overlies the stomach. Chest X-Ray 11/24/20 18:01 IMPRESSION: 1. Endotracheal tube tip projects approximately 2.3 cm above the jackelyn. 2. Some progression in bilateral opacities, particularly on the right with possible small right pleural effusion. Head CT 11/25/20 00:24 IMPRESSION: 1. No acute intracranial findings. Assessment & Plan - Diagnosis (1) Abscess of left upper arm and forearm Is this a current diagnosis for this admission?: Yes (2) Cellulitis of left upper extremity Is this a current diagnosis for this admission?: Yes - Time Anticipated Discharge Disposition: Home with Home Health Anticipated Discharge Timeframe: When ready - Plan Summary Plan Summary: Assessment: Postoperative day #1 following file opening of left upper extremity with multiple abscesses of the left arm and left forearm Physical exam reveals all tissue exposed the left upper extremity including muscle bellies which are pink, viable, skin viable, no odor, no drainage Blood pressure count 21,000 Vital signs are unstable with blood pressure 80/50 throughout the night Urine output 100 mL overnight Patient currently neurologically intact awake responsive Patient intubated Patient on pressors Levophed low-dose because of hypotension None: Replace dressing left upper extremity bedside Continue Endotek intubation until the patient is on pressors, once off pressor the patient be extubated Add Rocephin and clindamycin IV antibiotics for broader bacterial spectrum coverage Continue n.p.o. Continue IV fluids same rate 150 mL/h
[2020-11-25] MEDS: CEFTRIAXONE 2 GM/D5W RTU 2 GM/50 ML RTUPB IV SCH ×2 (08:30→21:40)
--- NOTE | 2020-11-25 09:10 | PDOC CRITICAL CARE PROG REPORT ---
General Date:: 11/25/20 ICU Day:: 2 Ventilator Day:: 2 Hospital Day:: 2 Resuscitation Status: Full Code Events in the past 12 to 24 Hours:: Wound redressed by Dr. Mosher. Wound clean. No OR today. May extubate if stable and levophed coming down. Review of systems relevant to events:: CV, ID. Reason for ICU Addmission:: Intubated and in septic shock - Medications: Medications reviewed and adjusted accordingly: Yes Vasopressors:: Levophed Sedation:: None Physical Exam Vital Signs: Temp Pulse Resp BP Pulse Ox 99.6 F 122 H 26 H 89/63 L 95 11/25/20 08:00 11/25/20 07:34 11/25/20 08:00 11/25/20 08:00 11/25/20 08:08 Intake & Output 11/24/20 11/25/20 11/26/20 06:59 06:59 06:59 Intake Total 3540 191 Output Total 360 100 Balance 3180 91 Weight 72.575 kg Weight/Height Weight 72.575 kg Height 5 ft 4 in General appearance: PRESENT: no acute distress Head exam: PRESENT: atraumatic, normocephalic Eye exam: PRESENT: conjunctiva pink, EOMI, PERRLA. ABSENT: scleral icterus Ear exam: PRESENT: normal external ear exam Mouth exam: PRESENT: moist, tongue midline Respiratory exam: PRESENT: clear to auscultation estelle. ABSENT: rales, rhonchi, wheezes Cardiovascular exam: PRESENT: RRR, tachycardia. ABSENT: diastolic murmur, rubs, systolic murmur GI/Abdominal exam: PRESENT: normal bowel sounds, soft. ABSENT: distended, guarding, mass, organolmegaly, rebound, tenderness Rectal exam: PRESENT: deferred Gentrourinary exam: PRESENT: indwelling catheter Extremities exam: PRESENT: other - L arm redressed. Fingers pink. Siad by Dr. Cedillo to have a clean wound/ Neurological exam: PRESENT: other - Sedated with dilaudid. Skin exam: PRESENT: other - Multiple areas of dried skin popping sites. Tubes/Lines: PRESENT: Endotracheal Tube, Central Line, Nasogastic Tube Laboratory/Radiographs Laboratory Results: 11/25/20 03:50 11/25/20 03:50 11/24/20 11/24/20 11/24/20 18:30 18:30 18:30 WBC 19.3 H RBC 4.02 Hgb 11.0 L Hct 33.2 L MCV 83 MCH 27.3 MCHC 33.1 RDW 14.5 H Plt Count 275 Seg Neutrophils % Not Reportable Carbonic Acid HCO3/H2CO3 Ratio ABG pH ABG pCO2 ABG pO2 ABG HCO3 ABG O2 Saturation ABG Base Excess FiO2 Sodium 132.9 L Potassium 3.4 L Chloride 98 Carbon Dioxide 23 Anion Gap 12 BUN 30 H Creatinine 2.54 H Est GFR ( Amer) 26 L Glucose 44 L Lactic Acid 3.6 H Calcium 6.7 L* Magnesium Total Bilirubin 1.5 H AST 29 Alkaline Phosphatase 151 H Total Protein 4.7 L Albumin 2.0 L 11/24/20 11/24/20 11/24/20 19:54 19:54 19:54 WBC 21.1 H RBC 3.59 L Hgb 9.8 L Hct 30.2 L MCV 84 MCH 27.3 MCHC 32.4 RDW 14.9 H Plt Count 251 Seg Neutrophils % Not Reportable Carbonic Acid 2.51 H HCO3/H2CO3 Ratio 9:1 ABG pH 7.05 L* ABG pCO2 83.3 H* ABG pO2 52.9 L ABG HCO3 22.7 ABG O2 Saturation 70.7 L ABG Base Excess -8.7 FiO2 30% Sodium Potassium Chloride Carbon Dioxide Anion Gap BUN Creatinine Est GFR ( Amer) Glucose Lactic Acid 3.5 H Calcium Magnesium Total Bilirubin AST Alkaline Phosphatase Total Protein Albumin 11/24/20 11/24/20 11/24/20 19:54 22:55 23:38 WBC RBC Hgb Hct MCV MCH MCHC RDW Plt Count Seg Neutrophils % Carbonic Acid 1.66 H HCO3/H2CO3 Ratio 11:1 ABG pH 7.16 L* ABG pCO2 55.2 H ABG pO2 98.9 ABG HCO3 19.4 L ABG O2 Saturation 95.6 ABG Base Excess -9.4 FiO2 80% Sodium 133.2 L Potassium 3.4 L Chloride 102 Carbon Dioxide 22 Anion Gap 9 BUN 27 H Creatinine 2.27 H Est GFR ( Amer) 29 L Glucose 71 L Lactic Acid 4.8 H Calcium 6.0 L* Magnesium Total Bilirubin AST Alkaline Phosphatase Total Protein Albumin 11/25/20 11/25/20 11/25/20 03:50 03:50 03:50 WBC 22.3 H RBC 3.78 Hgb 10.0 L Hct 31.3 L MCV 83 MCH 26.6 L MCHC 32.1 RDW 15.0 H Plt Count 250 Seg Neutrophils % Carbonic Acid HCO3/H2CO3 Ratio ABG pH ABG pCO2 ABG pO2 ABG HCO3 ABG O2 Saturation ABG Base Excess FiO2 Sodium 134.6 L Potassium 3.7 Chloride 101 Carbon Dioxide 22 Anion Gap 12 BUN 28 H Creatinine 2.01 H Est GFR ( Amer) 34 L Glucose 130 H Lactic Acid Calcium 6.5 L* Magnesium 1.1 L* Total Bilirubin 1.9 H AST 33 Alkaline Phosphatase 91 Total Protein 4.4 L Albumin 2.1 L 11/25/20 06:50 WBC RBC Hgb Hct MCV MCH MCHC RDW Plt Count Seg Neutrophils % Carbonic Acid 1.09 HCO3/H2CO3 Ratio 18:1 ABG pH 7.37 ABG pCO2 36.2 ABG pO2 147.2 H ABG HCO3 20.5 ABG O2 Saturation 98.8 H ABG Base Excess -4.3 FiO2 80% Sodium Potassium Chloride Carbon Dioxide Anion Gap BUN Creatinine Est GFR ( Amer) Glucose Lactic Acid Calcium Magnesium Total Bilirubin AST Alkaline Phosphatase Total Protein Albumin 11/24/20 18:30 Creatine Kinase 155 H Impressions: KUB X-Ray 11/24/20 17:59 IMPRESSION: Nasogastric tube tip overlies the stomach. Chest X-Ray 11/24/20 18:01 IMPRESSION: 1. Endotracheal tube tip projects approximately 2.3 cm above the jackelyn. 2. Some progression in bilateral opacities, particularly on the right with possible small right pleural effusion. Head CT 11/25/20 00:24 IMPRESSION: 1. No acute intracranial findings. All labs, radiographs, diagnostic studies and EKGs were personally reviewed: Yes In addition, reports of radiographic and diagnostic studies were read: Yes Assessment and Plan - Diagnosis (1) Septic shock Is this a current diagnosis for this admission?: Yes Plan: She looks to be out of septic shock by appearance of wound. However she is still needing levophed and is tachycardic. Repeat lactic acid to be redrawn with random cortisol. (2) Abscess of left upper arm and forearm Is this a current diagnosis for this admission?: Yes Plan: Seems to have been definatetivly dealt with in OR for now. (3) IV drug user Is this a current diagnosis for this admission?: Yes Plan: Echocardiogram to be done to make sure there is not another vegetation. (4) Anxiety and depression Is this a current diagnosis for this admission?: Yes Plan: Baseline Plan Summary: If her weaning parameters are good, levophed can come down will extubate. Critical Time Critical Time (minutes): 35 Level of Care: ICU Anticipated discharge: Home Anticipated DC Timeframe: Other -: 1. The care of a critical patient is a dynamic process. This note is a field representatives director synopsis but static in nature. The timeframe for treatments given in order is not necessarily the actual time these treatments may have been done. 2. This patient requires critical care secondary to ongoing requirements for therapy not offered or safe outside the critical care environment. Transfer to a lower level of care will result in altered life or limb morbidity and mortality. 3. Multidisciplinary rounds completed. 4. ABCDE bundle addressed.
[2020-11-25] MEDS: FAMOTIDINE INJ/PF 20 MG/2 ML SDV IV SCH ×2 (10:23→23:12)
[2020-11-25] MEDS: ENOXAPARIN SODIUM INJ 40 MG/0.4 ML DISP.SYRIN SUBCUT SCH (10:23)
[2020-11-25] MEDS: CLINDAMYCIN 900 MG/D5W RTU 900 MG/50 ML RTUPB IV SCH ×2 (10:24→18:31)
[2020-11-25] MEDS: LINEZOLID 600 MG/300 ML RTUPB IV SCH ×2 (11:26→23:26)
[2020-11-25] MEDS ORDERED: CALCIUM GLUCONATE 1000 MG/10 ML INJ IV ONE (11:28)
[2020-11-25] MEDS: CALCIUM GLUCONATE 1 GM/NS 50 ML RTU IV SCH ×2 (11:40→12:51)
[2020-11-25] MEDS: CHLORHEXIDINE GLUCONATE 0.12% ORAL RINSE 15 ML UDC MM SCH (19:08)
[2020-11-25] MEDS: ACETAMINOPHEN 650 MG SUPP.RECT PR PRN (22:59)
--- NOTE | 2020-11-26 00:03 | XCELERA REPORT ---
[address] [address] Transthoracic Echocardiogram Report Name: HAROON SOTOMAYOR Age: 35 yrs Gender: Female : 1985 Patient Status: Inpatient Patient [address] Study Date: 11/25/2020 05:47 PM Height: 64 in Weight: 160 lb BSA: 1.8 m2 Procedure: A two-dimensional transthoracic echocardiogram with color flow and Doppler was performed. The study was technically difficult with many images being suboptimal in quality. Images were not obtained from all of the standard acoustic windows due to the limited scope of the study. Reason For Study: r/o vegetation History: Vegetation / Endocarditis. Ordering Physician: SIENA BECERRIL Performed By: Adriana Lake Interpretation Summary The left ventricle is normal in size. There is normal left ventricular wall thickness. LV EF is 50% Left ventricular systolic function is mildly reduced. There are no 'True apical 2 chamber ' views.Hence cannot comment on the apical inferior,basal inferior,the apical anterior and the basal anterior martinez.The mid LV martinez and the rest of the LV martinez show mild hypokinesia. LV diastolic function not assessed. There is no thrombus. Flattened septum is consistent with RV pressure/volume overload The right ventricle is moderately dilated. There is borderline right ventricular hypertrophy. The right ventricular systolic function is mild to moderately reduced. The right atrium is mild to moderately dilated. The left atrial size is normal. There is no evidence of mitral valve prolapse. There is no vegetation seen on the mitral valve. There is no mitral valve stenosis. There is a trace to mild amount of mitral regurgitation There is no aortic valvular vegetation. There is no aortic valve stenosis There is a trace amount of aortic regurgitation There is a small vegetation or mass on the tricuspid valve. There is no tricuspid stenosis. There is a moderate amount of tricuspid regurgitation There is moderate pulmonary hypertension by echo RVSP is 50 to 55 mm of HG , with RA mean of 10 to 15. There is no pulmonic valvular stenosis. The aortic root is normal size. The inferior vena cava appeared normal and decreased < 50% with respiration (RAP 10-15 mmHg) No pericardial effusion. MMode/2D Measurements & Calculations RVDd: 2.9 cm LVIDd: 3.8 cm FS: 23.0 % Ao root diam: 2.3 cm IVSd: 1.0 cm LVIDs: 2.9 cm EDV(Teich): 62.2 ml Ao root area: 4.2 cm2 LVPWd: 0.82 cm ESV(Teich): 33.1 ml EF(Teich): 46.8 % Doppler Measurements & Calculations Ao V2 max: LV V1 max PG: PA V2 max: TR max lili: 139.1 cm/sec 5.5 mmHg 76.2 cm/sec 316.0 cm/sec Ao max P.7 mmHg LV V1 max: PA max PG: TR max P.5 cm/sec 2.3 mmHg 39.9 mmHg MV P1/2t-pr_phl: 39.6 msec Left Ventricle The left ventricle is normal in size. There is normal left ventricular wall thickness. LV EF is 50%. Left ventricular systolic function is mildly reduced. There are no 'True apical 2 chamber ' views.Hence cannot comment on the apical inferior,basal inferior,the apical anterior and the basal anterior martinez.The mid LV martinez and the rest of the LV martinez show mild hypokinesia. LV diastolic function not assessed. Flattened septum is consistent with RV pressure/volume overload. There is no thrombus. No defenite ASD,VSD o r PFO seen. Right Ventricle The right ventricle is moderately dilated. There is borderline right ventricular hypertrophy. The right ventricular systolic function is mild to moderately reduced. Atria The right atrium is mild to moderately dilated. The left atrial size is normal. Mitral Valve There is no evidence of mitral valve prolapse. There is no vegetation seen on the mitral valve. There is no mitral valve stenosis. There is a trace to mild amount of mitral regurgitation. Aortic Valve There is no aortic valvular vegetation. There is no aortic valve stenosis. There is a trace amount of aortic regurgitation. Tricuspid Valve There is a small vegetation or mass on the tricuspid valve. There is no tricuspid stenosis. There is a moderate amount of tricuspid regurgitation. There is moderate pulmonary hypertension by echo. RVSP is 50 to 55 mm of HG , with RA mean of 10 to 15. Pulmonic Valve There is no pulmonic valvular stenosis. There is a mild amount of pulmonic regurgitation. Great Vessels The aortic root is normal size. The inferior vena cava appeared normal and decreased < 50% with respiration (RAP 10-15 mmHg). Effusions No pericardial effusion. : SIENA BECERRIL Lakshmi
[2020-11-26] MEDS: ALBUMIN HUMAN 12.5 GM/50 ML RTUINJ IV SCH (00:21)
[2020-11-26] MEDS: DEXTROSE 5%-WATER 250 ML with NOREPINEPHRINE BITARTRATE 4 MG IV PRN ×10 (00:44→22:12)
[2020-11-26] MEDS: LORAZEPAM INJ 2 MG/1 ML VIAL IV PRN ×4 (01:06→17:22)
[2020-11-26] MEDS: CLINDAMYCIN 900 MG/D5W RTU 900 MG/50 ML RTUPB IV SCH (02:47)
[2020-11-26] MEDS: DEXTROSE 5%-LACTATED RINGERS 1,000 ML IV PRN (03:02)
[2020-11-26] MEDS: RINGERS SOLUTION,LACTATED 1,000 ML IV PRN ×2 (04:43→11:30)
[2020-11-26] MEDS: ACETAMINOPHEN 650 MG SUPP.RECT PR PRN (08:05)
--- NOTE | 2020-11-26 08:07 | PDOC PROGRESS REPORT ---
Subjective Date:: 11/26/20 Subjective:: Debated sedated Reason For Visit: SEPTIC SHOCK. CELLULITIS. IVDA. INTUBATED POST OP. Physical Exam Vital Signs: Temp Pulse Resp BP Pulse Ox 101.6 F H 122 H 31 H 109/67 94 11/26/20 06:45 11/25/20 07:34 11/26/20 06:45 11/26/20 06:45 11/26/20 06:45 Intake & Output 11/25/20 11/26/20 11/27/20 06:59 06:59 06:59 Intake Total 3540 9064 Output Total 360 1090 Balance 3180 7974 Weight 72.575 kg General appearance: PRESENT: other Head exam: PRESENT: normocephalic Eye exam: PRESENT: EOMI Mouth exam: PRESENT: dry mucosa Teeth exam: PRESENT: poor dentation Neck exam: PRESENT: other - Intubated sedated Respiratory exam: PRESENT: clear to auscultation estelle Cardiovascular exam: PRESENT: RRR Pulses: PRESENT: normal radial pulses, normal femoral pulses Vascular exam: PRESENT: normal capillary refill Breast: PRESENT: Normal GI/Abdominal exam: PRESENT: soft Rectal exam: PRESENT: deferred Gentrourinary exam: PRESENT: indwelling catheter Extremities exam: PRESENT: other - The left upper extremity has exposed muscle from the axilla all the way to the wrist the muscle bellies are clean there is no evidence of any undrained pus on the medial aspect of the upper extremity the skin appears to be have an area of approximately 6 cm diameter area of necrosis Neurological exam: PRESENT: other - Intubated sedated Psychiatric exam: PRESENT: appropriate affect Skin exam: PRESENT: dry Results Laboratory Results: 11/25/20 03:50 11/25/20 03:50 11/24/20 11/25/20 18:30 12:02 WBC 19.3 H RBC 4.02 Hgb 11.0 L Hct 33.2 L MCV 83 MCH 27.3 MCHC 33.1 RDW 14.5 H Plt Count 275 Lactic Acid 4.3 H 11/24/20 17:04 Arm Gram Stain - Final 11/24/20 17:04 Arm Wound Culture - Final Staphylococcus Aureus Group A Beta Streptococcus No Anaerobic Organisms 11/24/20 13:01 Arm - Left Cellulitis Gram Stain - Final 11/24/20 13:01 Arm - Left Cellulitis Wound Culture - Final Staphylococcus Aureus Group A Beta Streptococcus 11/24/20 18:30 Creatine Kinase 155 H Impressions: KUB X-Ray 11/24/20 17:59 IMPRESSION: Nasogastric tube tip overlies the stomach. Chest X-Ray 11/24/20 18:01 IMPRESSION: 1. Endotracheal tube tip projects approximately 2.3 cm above the jackelyn. 2. Some progression in bilateral opacities, particularly on the right with possible small right pleural effusion. Head CT 11/25/20 00:24 IMPRESSION: 1. No acute intracranial findings. Assessment & Plan - Time Anticipated Discharge Disposition: Home, Self Care Anticipated Discharge Timeframe: Unknown - Plan Summary Plan Summary: Status post l upper extremity debridement for abscess secondary to intravenous drug use. Muscle bellies are clean there is no area of any undrained pus there is some necrosis of the medial aspect of the upper arm extremity skin that may need future debridement. For now management per lumber racker would continue wet-to-dry dressing changes to the left upper extremity. At least twice daily.
[2020-11-26] MEDS: FAMOTIDINE INJ/PF 20 MG/2 ML SDV IV SCH ×2 (09:21→23:39)
[2020-11-26] MEDS: ENOXAPARIN SODIUM INJ 40 MG/0.4 ML DISP.SYRIN SUBCUT SCH (09:22)
[2020-11-26] MEDS: MEROPENEM 1 GM in NORMAL SALINE 50 ML IV SCH ×2 (09:22→23:41)
[2020-11-26] MEDS: CHLORHEXIDINE GLUCONATE 0.12% ORAL RINSE 15 ML UDC MM SCH ×2 (09:23→20:22)
--- NOTE | 2020-11-26 09:47 | PDOC CRITICAL CARE PROG REPORT ---
General Date:: 11/26/20 ICU Day:: 2 Ventilator Day:: 2 Hospital Day:: 2 Resuscitation Status: Full Code Events in the past 12 to 24 Hours:: Wound redressed by Dr. Mosher. Wound clean. No OR today. May extubate if stable and levophed coming down. 11/26: Wound still clean. Sleepier. Fever to 101.6 and Merpenem added to antibiotics. Not ready to extubate. Drop FIO2, PSV and recheck RSBI today. Review of systems relevant to events:: Neurological, ID Reason for ICU Addmission:: Intubated and in septic shock - Medications: Medications reviewed and adjusted accordingly: Yes Vasopressors:: Levophed Sedation:: Diprivan. Physical Exam Vital Signs: Temp Pulse Resp BP Pulse Ox 101.6 F H 122 H 31 H 109/67 94 11/26/20 06:45 11/25/20 07:34 11/26/20 06:45 11/26/20 06:45 11/26/20 06:45 Intake & Output 11/25/20 11/26/20 11/27/20 06:59 06:59 06:59 Intake Total 3540 9064 Output Total 360 1090 Balance 3180 7974 Weight 72.575 kg Weight/Height Weight 72.575 kg Height 5 ft 4 in General appearance: PRESENT: no acute distress Head exam: PRESENT: atraumatic, normocephalic Eye exam: PRESENT: conjunctiva pink, EOMI, PERRLA. ABSENT: scleral icterus Ear exam: PRESENT: normal external ear exam Mouth exam: PRESENT: moist, tongue midline Respiratory exam: PRESENT: clear to auscultation estelle. ABSENT: rales, rhonchi, wheezes Cardiovascular exam: PRESENT: RRR, tachycardia. ABSENT: diastolic murmur, rubs, systolic murmur GI/Abdominal exam: PRESENT: normal bowel sounds, soft. ABSENT: distended, guarding, mass, organolmegaly, rebound, tenderness Rectal exam: PRESENT: deferred Gentrourinary exam: PRESENT: indwelling catheter Extremities exam: PRESENT: full ROM. ABSENT: calf tenderness, clubbing, pedal edema Musculoskeletal exam: PRESENT: normal inspection Neurological exam: PRESENT: other - Arousable but quite somnolent. Skin exam: PRESENT: dry, intact, warm. ABSENT: cyanosis, rash Tubes/Lines: PRESENT: Endotracheal Tube, Central Line, Nasogastic Tube Laboratory/Radiographs Laboratory Results: 11/25/20 03:50 11/25/20 03:50 11/24/20 11/25/20 18:30 12:02 WBC 19.3 H RBC 4.02 Hgb 11.0 L Hct 33.2 L MCV 83 MCH 27.3 MCHC 33.1 RDW 14.5 H Plt Count 275 Lactic Acid 4.3 H 11/24/20 19:54 Blood Blood Culture (PCR) - Final Strep Pyogenes (Grp A) 11/24/20 17:04 Arm Gram Stain - Final 11/24/20 17:04 Arm Wound Culture - Final Staphylococcus Aureus Group A Beta Streptococcus No Anaerobic Organisms 11/24/20 13:01 Arm - Left Cellulitis Gram Stain - Final 11/24/20 13:01 Arm - Left Cellulitis Wound Culture - Final Staphylococcus Aureus Group A Beta Streptococcus 11/24/20 18:30 Creatine Kinase 155 H Impressions: KUB X-Ray 11/24/20 17:59 IMPRESSION: Nasogastric tube tip overlies the stomach. Chest X-Ray 11/24/20 18:01 IMPRESSION: 1. Endotracheal tube tip projects approximately 2.3 cm above the jackelyn. 2. Some progression in bilateral opacities, particularly on the right with possible small right pleural effusion. Head CT 11/25/20 00:24 IMPRESSION: 1. No acute intracranial findings. All labs, radiographs, diagnostic studies and EKGs were personally reviewed: Yes In addition, reports of radiographic and diagnostic studies were read: Yes Assessment and Plan - Diagnosis (1) Septic shock Is this a current diagnosis for this admission?: Yes Plan: Still meeting SIRS criteria but I believe she is out of septic shock. (2) Abscess of left upper arm and forearm Is this a current diagnosis for this admission?: Yes Plan: May need further debridement for necrotic muscle. No residual infection found. (3) IV drug user Is this a current diagnosis for this admission?: Yes Plan: Chronic and her somnolence may in part be due to coming down from a prolonged methamphetamine binge. (4) Anxiety and depression Is this a current diagnosis for this admission?: Yes Plan: Baseline and to address after extubation. Plan Summary: If PSV and FiO2 can be weaned will extubate if RSBI is low. Critical Time Critical Time (minutes): 35 Level of Care: ICU Anticipated discharge: Home Anticipated DC Timeframe: Other -: 1. The care of a critical patient is a dynamic process. This note is a risk control representative synopsis but static in nature. The timeframe for treatments given in order is not necessarily the actual time these treatments may have been done. 2. This patient requires critical care secondary to ongoing requirements for therapy not offered or safe outside the critical care environment. Transfer to a lower level of care will result in altered life or limb morbidity and mortality. 3. Multidisciplinary rounds completed. 4. ABCDE bundle addressed.
[2020-11-26] MEDS: LINEZOLID 600 MG/300 ML RTUPB IV SCH ×2 (09:53→23:53)
[2020-11-26] MEDS ORDERED: MEROPENEM 1 GM in NORMAL SALINE 50 ML IV SCH (10:00)
[2020-11-26 10:10] LABS: HEMATOCRIT 28.2 % (36.0-47.0); HEMOGLOBIN 9.1 g/dL (12.0-15.5); MEAN CORPUSCULAR HEMOGLOBIN 26.9 pg (27.0-33.4); MEAN CORPUSCULAR HGB CONC 32.3 g/dL (32.0-36.0); MEAN CORPUSCULAR VOLUME 83 fl (80-97); RED BLOOD COUNT 3.38 10^6/uL (3.72-5.28); WHITE BLOOD COUNT 29.7 10^3/uL (4.0-10.5)
[2020-11-26 10:17] LABS: INTERNATIONAL RATION (INR) 1.64; PROTHROMBIN TIME 19.6 SEC (11.4-15.4)
[2020-11-26 10:27] LABS: ALBUMIN 2.2 g/dL (3.5-5.0); ALKALINE PHOSPHATASE 115 U/L (38-126); ANION GAP 9 (5-19); ASPARTATE AMINO TRANSFERASE 62 U/L (14-36); BILIRUBIN,DIRECT 1.5 mg/dL (0.0-0.4); BLOOD UREA NITROGEN 29 mg/dL (7-20); CALCIUM 7.3 mg/dL (8.4-10.2); CARBON DIOXIDE 22 mmol/L (22-30); CHLORIDE 100 mmol/L (98-107); GLUCOSE 85 mg/dL (75-110); PHOSPHORUS 3.9 mg/dL (2.5-4.5); TOTAL PROTEIN 4.7 g/dL (6.3-8.2)
[2020-11-26 10:32] LABS: ABSOLUTE LYMPHOCYTES# (MANUAL) 2.1 10^3/uL (0.5-4.7); ABSOLUTE MONOCYTES # (MANUAL) 1.2 10^3/uL (0.1-1.4); BAND NEUTROPHILS % (MANUAL) 5 % (3-5); BASOPHILS % (MANUAL) 0 % (0-2); EOSINOPHILS % (MANUAL) 0 % (0-6); LYMPHOCYTES % (MANUAL) 4 % (13-45); MONOCYTES % (MANUAL) 4 % (3-13); SEGMENTED NEUTROPHILS % (MAN) 84 % (42-78); TOTAL CELLS COUNTED 100
[2020-11-26 10:33] LABS: ANISOCYTOSIS SLIGHT; HYPOCHROMASIA SLIGHT; PLATELET COMMENT ADEQUATE
[2020-11-26 10:34] LABS: BURR CELLS 1+; OVALOCYTES 1+; POIKILOCYTOSIS 1+; TEAR DROP CELLS 1+
[2020-11-26 10:35] LABS: PLATELET CLUMPS PRESENT
[2020-11-26 10:39] LABS: TOXIC GRANULATION 1+
[2020-11-26 10:40] LABS: PLATELET COUNT 165 10^3/uL (150-450)
[2020-11-26] MEDS ORDERED: NOREPINEPHRINE BITARTRATE INJ/PF 4 MG/4 ML SDV IV ONE ×2 (13:42→13:45)
--- NOTE | 2020-11-26 16:58 | PDOC TRANSFER SUMMARY ---
General Admission Date/PCP: 11/24/20 18:16 [facility] Resuscitation Status: Full Code - Transfer Diagnosis (1) Septic shock Is this a current diagnosis for this admission?: Yes (2) Abscess of left upper arm and forearm Is this a current diagnosis for this admission?: Yes (3) IV drug user Is this a current diagnosis for this admission?: Yes (4) Anxiety and depression Is this a current diagnosis for this admission?: Yes - Transfer Medications Home Medications: Unobtainable 11/25/20 Transfer Medications: Current Medications Acetaminophen (Acetaminophen 325 Mg Tablet) 650 mg NG Q4HP PRN PRN Reason: FEVER >101 Stop: 12/24/20 17:55 Last Admin: 11/25/20 02:40 Dose: 650 mg Documented by: Acetaminophen (Acetaminophen Susp 160 Mg/5 Ml Oral Syring) 800 mg PO Q4HP PRN PRN Reason: FEVER >101 Stop: 12/24/20 21:10 Last Admin: 11/25/20 18:22 Dose: 800 mg Documented by: Acetaminophen (Acetaminophen 650 Mg Supp.Rect) 975 mg MA Q4HP PRN PRN Reason: FEVER >101 Stop: 12/25/20 22:05 Last Admin: 11/26/20 08:05 Dose: 975 mg Documented by: Albuterol/Ipratropium (Ipratropium/Albuterol 0.5-2.5 Mg/3 Ml Ampul) 3 ml NEB RTQ4HP PRN PRN Reason: SHORTNESS OF BREATH Stop: 12/24/20 17:55 Chlorhexidine Gluconate (Chlorhexidine Gluconate 0.12% Oral Rinse 15 Ml Udc) 15 ml MM BID FADUMO Stop: 12/25/20 17:59 Last Admin: 11/26/20 09:23 Dose: 15 ml Documented by: Dextrose (Dextrose 50%-Water 25 Gm/50 Ml Disp.Syrin) 25 gm IV PRN PRN; Protocol PRN Reason: See Label Comments Stop: 12/24/20 17:55 Last Admin: 11/24/20 20:33 Dose: 25 gm Documented by: Dextrose (Dextrose 50%-Water 25 Gm/50 Ml Disp.Syrin) 12.5 gm IV PRN PRN; Protocol PRN Reason: FOR BG 50-69 IN ALERT PATIENT Stop: 12/24/20 20:26 Dextrose (Dextrose 50%-Water 25 Gm/50 Ml Disp.Syrin) 25 gm IV PRN PRN; Protocol PRN Reason: PER PROTOCOL Stop: 12/24/20 20:26 Enoxaparin Sodium (Enoxaparin Sodium Inj 40 Mg/0.4 Ml Disp.Syrin) 40 mg SUBCUT DAILY [facility] Stop: 12/25/20 09:59 Last Admin: 11/26/20 09:22 Dose: 40 mg Documented by: Famotidine (Famotidine Inj/Pf 20 Mg/2 Ml Sdv) 20 mg IV Q12 FADUMO Stop: 12/24/20 18:14 Last Admin: 11/26/20 09:21 Dose: 20 mg Documented by: Glucagon (Glucagon,Human Recomb 1 Mg Inj) 1 mg SUBCUT PRN PRN; Protocol PRN Reason: Evaluate for BG < 70 Stop: 12/24/20 17:55 Glucagon (Glucagon,Human Recomb 1 Mg Inj) 1 mg IM PRN PRN; Protocol PRN Reason: Evaluate for BG < 70 Stop: 12/24/20 20:26 Glucose (Dextrose 40% Gel 15 Gm Tube) 15 gm PO PRN PRN PRN Reason: PER PROTOCOL Stop: 12/24/20 14:46 Last Admin: 11/24/20 14:51 Dose: 15 gm Documented by: Glucose (Dextrose 40% Gel 15 Gm Tube) 15 gm PO PRN PRN; Protocol PRN Reason: For BG 50-69 in Alert Patient Stop: 12/24/20 17:55 Glucose (Dextrose 40% Gel 15 Gm Tube) 15 gm PO PRN PRN; Protocol PRN Reason: FOR BG 50-69 IN ALERT PATIENT Stop: 12/24/20 20:26 Glucose (Dextrose 40% Gel 15 Gm Tube) 30 gm PO PRN PRN; Protocol PRN Reason: FOR BG < 50 IN ALERT PATIENT Stop: 12/24/20 20:26 Hydromorphone HCl (Hydromorphone Hcl Inj/Pf 2 Mg/Ml Ampule) 2 mg IV Q2HP PRN PRN Reason: FOR PAIN Stop: 12/01/20 18:04 Propofol (Diprivan Rtu 1000 Mg/100 Ml Inf.Bottle) 1,000 mg in 100 mls @ 2.177 mls/hr IV CONTINUOUS PRN; Protocol PRN Reason: THIS MED IS NOT "PRN" Stop: 12/24/20 17:55 Linezolid (Zyvox Rtu 600 Mg/300 Ml Premixed) 600 mg in 300 mls @ 300 mls/hr IV Q12 [facility] Stop: 12/01/20 19:59 Last Infusion: 11/26/20 10:53 Dose: Infused Documented by: Dextrose/Lactated Ringer's (D5lr 1000 Ml Iv Soln) 1,000 mls @ 50 mls/hr IV CONTINUOUS PRN PRN Reason: THIS MED IS NOT "PRN" Stop: 12/24/20 20:20 Last Admin: 11/26/20 03:02 Dose: 50 mls/hr Documented by: Lactated Ringer's (Lactated Ringers 1000 Ml Iv Soln) 1,000 mls @ 150 mls/hr IV CONTINUOUS PRN PRN Reason: THIS MED IS NOT "PRN" Stop: 12/25/20 01:53 Last Admin: 11/26/20 11:30 Dose: 150 mls/hr Documented by: Norepinephrine Bitartrate 4 mg (/ Dextrose) 250 mls @ 0 mls/hr IV CONTINUOUS P RN; Protocol PRN Reason: THIS MED IS NOT "PRN" Last Admin: 11/26/20 13:20 Dose: 10 mcg/min, 37.5 mls/hr Documented by: Lactated Ringer's (Lactated Ringers 1000 Ml Iv Soln) 1,000 mls @ 999 mls/hr IV CONTINUOUS PRN PRN Reason: THIS MED IS NOT "PRN" Stop: 12/25/20 11:27 Last Infusion: 11/25/20 12:51 Dose: Infused Documented by: Meropenem 1 gm/ Sodium (Chloride) 50 mls @ 100 mls/hr IV Q12 [facility] Stop: 12/03/20 09:59 Last Infusion: 11/26/20 09:52 Dose: Infused Documented by: Lorazepam (Lorazepam Inj 2 Mg/1 Ml Vial) 1 mg IV Q2HP PRN PRN Reason: ANXIETY/AGITATION Stop: 12/03/20 00:25 Last Admin: 11/26/20 06:41 Dose: 1 mg Documented by: Pharmacy Profile Note (Pharmacy Communication Order) 1 each MC .NOTICE NR Stop: 12/24/20 17:59 Sodium Chloride (Normal Saline Flush 2.5 Ml Disp.Syrin) 2.5 ml IV Q8 [facility] Stop: 12/24/20 18:59 Last Admin: 11/26/20 13:59 Dose: 2.5 ml Documented by: - Allergies Allergies/Adverse Reactions: tramadol HCl [From Ultram] Allergy (Severe, Verified 11/24/20 14:17) haloperidol [From Haldol] Allergy (Verified 11/24/20 14:17) sulfamethoxazole [From Bactrim] Allergy (Verified 11/24/20 14:17) trimethoprim [From Bactrim] Allergy (Verified 11/24/20 14:17) Hospital Course Hospital Course: This patient is a 35 yo woman with a long history of IVDA using cocaine, methamphetamines, narcotics. Tox screen at admission negative but a large L arm abcess and multiple skin popping abcesses. She was taken fairly quickly to the OP in septic shock where her L arm had an entensive debridement of the deltoid region all the way down to her distal forearm. It is a long straight incision exposing muscle bellies from biceps to forearm muscles. Much pus and debris washed out and the wound left open with wet to dry dressings BID. She has been intubated since admission. Yesterday she was still on 60% FIO2 with an RSBI on PSV 5 of 108. She is down to 50% today but still has an RSBI of more than 70. She is also sleepy consistent with a crashing from a methamphetamine binge. She can be aroused and answer questions appropriately. She is still on levophed at 9mcg. She is not hypoadrenal. She is still in need of the ventilator and levophed. Physical Exam Vital Signs: Temp Pulse Resp BP Pulse Ox 100.9 F H 122 H 0 L 111/78 97 11/26/20 09:05 11/25/20 07:34 11/26/20 15:30 11/26/20 15:30 11/26/20 15:30 Intake & Output 11/25/20 11/26/20 11/27/20 06:59 06:59 06:59 Intake Total 3540 9064 1600 Output Total 360 1090 450 Balance 3180 7974 1150 Weight 72.575 kg 72.575 kg General appearance: PRESENT: no acute distress Head exam: PRESENT: atraumatic, normocephalic Eye exam: PRESENT: conjunctiva pink, EOMI, PERRLA. ABSENT: scleral icterus Ear exam: PRESENT: normal external ear exam Mouth exam: PRESENT: moist, tongue midline Respiratory exam: PRESENT: clear to auscultation estelle, other - Much secretions. ABSENT: rales, rhonchi, wheezes Cardiovascular exam: PRESENT: RRR, tachycardia. ABSENT: diastolic murmur, rubs, systolic murmur GI/Abdominal exam: PRESENT: normal bowel sounds, soft. ABSENT: distended, guarding, mass, organolmegaly, rebound, tenderness Rectal exam: PRESENT: deferred Gentrourinary exam: PRESENT: indwelling catheter Extremities exam: PRESENT: full ROM, +1 edema, other - L arm with large debridement incision from deltoid to forearm exposing muscle. Clean. ABSENT: calf tenderness, clubbing, pedal edema Neurological exam: PRESENT: alert, altered, awake, CN II-XII grossly intact, other - Somnolent Skin exam: PRESENT: dry, intact, warm, other - Multiple weeping areas of skin popping sites. On arms chest, Some on legs.. ABSENT: cyanosis, rash Results Laboratory Results: 11/26/20 09:51 11/26/20 09:51 11/24/20 11/26/20 11/26/20 18:30 09:51 09:51 WBC 19.3 H 29.7 H RBC 4.02 3.38 L Hgb 11.0 L 9.1 L Hct 33.2 L 28.2 L MCV 83 83 MCH 27.3 26.9 L MCHC 33.1 32.3 RDW 14.5 H 15.0 H Plt Count 275 165 Seg Neutrophils % Not Reportable Sodium 131.3 L Potassium 4.0 Chloride 100 Carbon Dioxide 22 Anion Gap 9 BUN 29 H Creatinine 1.49 H Est GFR ( Amer) 48 L Glucose 85 Serum Osmolality Calcium 7.3 L Ionized Calcium Tony Phosphorus 3.9 Magnesium 2.1 Total Bilirubin 2.0 H AST 62 H Alkaline Phosphatase 115 Total Protein 4.7 L Albumin 2.2 L 11/26/20 11/26/20 11/26/20 09:51 09:51 09:51 WBC RBC Hgb Hct MCV MCH MCHC RDW Plt Count Seg Neutrophils % Sodium Potassium Chloride Carbon Dioxide Anion Gap BUN Creatinine Est GFR ( Amer) Glucose Serum Osmolality 284 Calcium Ionized Calcium Tony 1.06 L Phosphorus Magnesium 2.1 Total Bilirubin AST Alkaline Phosphatase Total Protein Albumin 11/24/20 19:54 Blood Blood Culture (PCR) - Final Strep Pyogenes (Grp A) 11/24/20 17:04 Arm Gram Stain - Final 11/24/20 17:04 Arm Wound Culture - Final Staphylococcus Aureus Group A Beta Streptococcus No Anaerobic Organisms 11/24/20 13:01 Arm - Left Cellulitis Gram Stain - Final 11/24/20 13:01 Arm - Left Cellulitis Wound Culture - Final Staphylococcus Aureus Group A Beta Streptococcus 11/24/20 18:30 Creatine Kinase 155 H EKG Comments: She has an echo report suggesting a small vegetation on tricuspid valve. Impressions: KUB X-Ray 11/24/20 17:59 IMPRESSION: Nasogastric tube tip overlies the stomach. Chest X-Ray 11/24/20 18:01 IMPRESSION: 1. Endotracheal tube tip projects approximately 2.3 cm above the jackelyn. 2. Some progression in bilateral opacities, particularly on the right with possible small right pleural effusion. Head CT 11/25/20 00:24 IMPRESSION: 1. No acute intracranial findings. Plan Discharge Plan: Plan to transfer for further ICU care to [facility] Time Spent: Greater than 30 Minutes
--- NOTE | 2020-11-26 22:05 | Operative Report ---
Bedside Procedure - History of Present Illness History of Present Illness: HAROON SOTOMAYOR is a 35 year old female Presents emergency department via ground rescue complaining of several day history of a swelling left arm radiating to her. Patient has a long history of IV drug abuse, MRSA, endocarditis, hepatitis, and excessive skin popping who was found to have multiple extensive abscesses in various stages of healing all over her body face breast groin etc. Her left arm above and below the elbow is of erythema, discoloration concerning for abscess. Surgery was consulted. At bedside Dr. Murrell performed ultrasonography which demonstrated extensive subcutaneous fluid above and below the elbow consistent with soft tissue infection, consistent with nonconsolidated abscess. ReCommendations were made for patient to be admitted to the medicine service with surgery consulting. Patient needs to be taken to the operating room for drainage of the left arm infection as soon as possible. Her management may be complicated by her use of methamphetamines. Indication for Procedure: sepstic shock Date: 11/26/20 Provider: SIENA BECERRIL - Central Line Right Internal jugular Time completed: 22:02 Consent obtained: No - emergent unable to locate personnel director Central line pre-insertion: Sterile PPE donned, Chloraprep applied, Sterile drapes applied Central line lumen type: Triple Anesthetic type: 1% Lidocaine mL's of anesthesia: 5 Ultrasound guided: Yes Line secured with sutures: Yes Central line post-insertion: Blood return from lumens, Biopatch applied, Sutured, Sterile dressing applied, Position confirmed w/ CXR Number of attempts: 1 Complications: No
--- NOTE | 2020-11-26 22:06 | Progress Note ---
Provider Note Provider Note: Called by ER nurse patient had pulled out her right femoral TLC and had no IV access. Patient continues to require levophed decision made to insert a new TLC. Instructed to maintain wrist soft restraints.
--- NOTE | 2020-11-26 22:31 | RADIOLOGY REPORT (SQ) ---
EXAM DESCRIPTION: CHEST SINGLE VIEW 11/26/2020 12:00 AM [employer] CLINICAL HISTORY: 35 years Female, Rt. subclavian central line placement verification; ; COMPARISON: Prior study from 11/24/2020 FINDINGS: Single view is obtained. Endotracheal tube tip is located 3 cm above the jackelyn. Enteric drainage tube tip projects below the field of view. Right IJ approach central venous catheter tip is located in the inferior right atrium. Cardiac and mediastinal contours are stable. Widespread bilateral airspace disease is noted. No pneumothorax or large pleural effusion. IMPRESSION: Widespread bilateral airspace disease, suspicious for multifocal pneumonia/viral pneumonitis. This appears substantially increased from the previous exam dated 11/24/2020. Right IJ approach intravenous catheter tip is located within the inferior right atrium. Consider retraction by 6 cm for optimal positioning.
[2020-11-27] MEDS: DEXTROSE 5%-LACTATED RINGERS 1,000 ML IV PRN (00:20)
[2020-11-27] MEDS: RINGERS SOLUTION,LACTATED 1,000 ML IV PRN ×2 (03:16→09:52)
[2020-11-27] MEDS: DEXTROSE 5%-WATER 250 ML with NOREPINEPHRINE BITARTRATE 4 MG IV PRN ×4 (05:17→14:11)
[2020-11-27] MEDS: LORAZEPAM INJ 2 MG/1 ML VIAL IV PRN ×2 (05:53→10:42)
[2020-11-27 08:29] LABS: HEMATOCRIT 27.8 % (36.0-47.0); HEMOGLOBIN 9.1 g/dL (12.0-15.5); MEAN CORPUSCULAR HEMOGLOBIN 27.1 pg (27.0-33.4); MEAN CORPUSCULAR HGB CONC 32.8 g/dL (32.0-36.0); MEAN CORPUSCULAR VOLUME 83 fl (80-97); PLATELET COUNT 176 10^3/uL (150-450); RED BLOOD COUNT 3.36 10^6/uL (3.72-5.28); RED CELL DISTRIBUTION WIDTH 15.2 % (11.5-14.0)
[2020-11-27 08:46] LABS: ANION GAP 5 (5-19); BLOOD UREA NITROGEN 26 mg/dL (7-20); CALCIUM 7.7 mg/dL (8.4-10.2); CARBON DIOXIDE 26 mmol/L (22-30); CHLORIDE 103 mmol/L (98-107); GLUCOSE 85 mg/dL (75-110); POTASSIUM 4.1 mmol/L (3.6-5.0)
[2020-11-27 09:00] LABS: ARTERIAL BLOOD BASE EXCESS -5.1 mmol/L; ARTERIAL BLOOD FIO2 60%; ARTERIAL BLOOD H2CO3 1.19 mmol/L (1.05-1.35); ARTERIAL BLOOD HCO3 20.4 mmol/L (20-24); ARTERIAL BLOOD O2 SATURATION 98.9 % (94-98); ARTERIAL BLOOD PCO2 39.5 mmHg (35-45); ARTERIAL BLOOD PH 7.33 (7.35-7.45); ARTERIAL BLOOD PO2 156.1 mmHg (80-100); ARTERIAL BLOOD TOTAL CO2 21.6 mmol/L (21-25)
[2020-11-27 09:23] LABS: ABSOLUTE LYMPHOCYTES# (MANUAL) 1.3 10^3/uL (0.5-4.7); ABSOLUTE MONOCYTES # (MANUAL) 0.8 10^3/uL (0.1-1.4); BASOPHILS % (MANUAL) 0 % (0-2); EOSINOPHILS % (MANUAL) 0 % (0-6); LYMPHOCYTES % (MANUAL) 4 % (13-45); MONOCYTES % (MANUAL) 3 % (3-13); SEGMENTED NEUTROPHILS % (MAN) 92 % (42-78); TOTAL CELLS COUNTED 100
[2020-11-27 09:24] LABS: ANISOCYTOSIS SLIGHT; PLATELET COMMENT ADEQUATE
[2020-11-27 09:25] LABS: OVALOCYTES SLIGHT; POIKILOCYTOSIS SLIGHT
[2020-11-27] MEDS: FAMOTIDINE INJ/PF 20 MG/2 ML SDV IV SCH ×2 (09:51→21:36)
[2020-11-27] MEDS: ENOXAPARIN SODIUM INJ 40 MG/0.4 ML DISP.SYRIN SUBCUT SCH (09:51)
[2020-11-27] MEDS: HYDROMORPHONE HCL INJ/PF 2 MG/ML AMPULE IV PRN ×3 (09:51→19:09)
[2020-11-27] MEDS: MEROPENEM 1 GM in NORMAL SALINE 50 ML IV SCH ×2 (10:36→21:36)
--- NOTE | 2020-11-27 11:10 | PDOC PROGRESS REPORT ---
Subjective Date:: 11/27/20 Reason For Visit: SEPTIC SHOCK. CELLULITIS. IVDA. INTUBATED POST OP. Patient in emergency department room 19, on the ventilator, on and off low-dose Levophed, undergoing dressing changes left arm, adequate urine output Physical Exam Vital Signs: Temp Pulse Resp BP Pulse Ox 98.8 F 108 H 15 100/70 99 11/27/20 06:51 11/27/20 09:23 11/27/20 09:23 11/27/20 06:51 11/27/20 09:23 Intake & Output 11/26/20 11/27/20 11/28/20 06:59 06:59 06:59 Intake Total 9064 4479 990 Output Total 1090 1515 Balance 7974 2964 990 Weight 72.575 kg General appearance: PRESENT: no acute distress Musculoskeletal exam: PRESENT: other - Left arm dressing removed. There are areas of skin necrosis, full-thickness, on the medial and lateral aspects of the upper arm. No overt foul-smelling, some watery drainage. Muscle viable. Skin exam: PRESENT: other - Mild to moderate erythema of the anterior chest left side, and axilla Results Laboratory Results: 11/27/20 08:06 11/27/20 08:06 11/27/20 11/27/20 11/27/20 08:06 08:06 08:44 WBC 25.0 H RBC 3.36 L Hgb 9.1 L Hct 27.8 L MCV 83 MCH 27.1 MCHC 32.8 RDW 15.2 H Plt Count 176 Seg Neutrophils % Not Reportable Carbonic Acid 1.19 HCO3/H2CO3 Ratio 17:1 ABG pH 7.33 L ABG pCO2 39.5 ABG pO2 156.1 H ABG HCO3 20.4 ABG O2 Saturation 98.9 H ABG Base Excess -5.1 FiO2 60% Sodium 133.8 L Potassium 4.1 Chloride 103 Carbon Dioxide 26 Anion Gap 5 BUN 26 H Creatinine 1.20 Est GFR ( Amer) > 60 Glucose 85 Calcium 7.7 L 11/24/20 19:54 Blood Blood Culture (PCR) - Final Strep Pyogenes (Grp A) 11/24/20 17:04 Arm Gram Stain - Final 11/24/20 17:04 Arm Wound Culture - Final Staphylococcus Aureus Group A Beta Streptococcus No Anaerobic Organisms 11/24/20 13:01 Arm - Left Cellulitis Gram Stain - Final 11/24/20 13:01 Arm - Left Cellulitis Wound Culture - Final Staphylococcus Aureus Group A Beta Streptococcus 11/24/20 18:30 Creatine Kinase 155 H Impressions: KUB X-Ray 11/24/20 17:59 IMPRESSION: Nasogastric tube tip overlies the stomach. Head CT 11/25/20 00:24 IMPRESSION: 1. No acute intracranial findings. Chest X-Ray 11/26/20 00:00 IMPRESSION: Widespread bilateral airspace disease, suspicious for multifocal pneumonia/viral pneumonitis. This appears substantially increased from the previous exam dated 11/24/2020. Right IJ approach intravenous catheter tip is located within the inferior right atrium. Consider retraction by 6 cm for optimal positioning. Assessment & Plan - Diagnosis (1) Abscess of left upper arm and forearm Is this a current diagnosis for this admission?: Yes Plan: Impression: Progressive process of medial lateral skin flaps left upper arm; patient exposed, debrided muscle very good. Metabolic acidosis resolved. Recommendations: 1. Take patient back to the operating room today for excisional debridement of nonviable skin and soft tissue with washout of muscle. 2. We will check CVP, ascertain intravascular volume status. (2) IV drug user Is this a current diagnosis for this admission?: Yes (3) Sepsis Qualifiers: Sepsis type: sepsis due to unspecified organism Sepsis acute organ dysfunction status: unspecified Qualified Code(s): A41.9 - Sepsis, unspecified organism Is this a current diagnosis for this admission?: Yes (4) Bipolar disorder Qualifiers: Active/Remission status: remission status unspecified Qualified Code(s): F31.9 - Bipolar disorder, unspecified Is this a current diagnosis for this admission?: Yes (5) Hepatitis C Qualifiers: Viral hepatitis chronicity: chronic Hepatic coma status: without hepatic coma Qualified Code(s): B18.2 - Chronic viral hepatitis C (6) Opiate abuse, episodic Is this a current diagnosis for this admission?: Yes (7) Tobacco abuse Is this a current diagnosis for this admission?: Yes - Time Anticipated Discharge Disposition: TBD Anticipated Discharge Timeframe: TBD Time Spent: 30 to 50 Minutes
[2020-11-27] MEDS ORDERED: CALCIUM GLUCONATE 1000 MG/10 ML INJ IV ONE (11:11)
[2020-11-27] MEDS: LINEZOLID 600 MG/300 ML RTUPB IV SCH ×2 (11:49→21:39)
[2020-11-27] MEDS ORDERED: ROCURONIUM BROMIDE INJ 50 MG/5 ML VIAL IV ONE (11:50)
[2020-11-27] MEDS ORDERED: FENTANYL CITRATE INJ/PF 100 MCG/2 ML AMPUL ONE (12:01)
[2020-11-27] MEDS ORDERED: MIDAZOLAM 2 MG/2 ML INJ ONE ×2 (12:01→12:37)
[2020-11-27] MEDS ORDERED: PROPOFOL INJ 200 MG/20 ML VIAL IV ONE (12:02)
[2020-11-27] MEDS: CALCIUM GLUCONATE 1 GM/NS 50 ML RTU IV SCH ×2 (14:04→15:13)
[2020-11-27] MEDS: CHLORHEXIDINE GLUCONATE 0.12% ORAL RINSE 15 ML UDC MM SCH ×2 (14:09→19:11)
--- NOTE | 2020-11-27 16:13 | Progress Note ---
Provider Note Provider Note: Update to progress note done yesterday. Since yesterday she has gone back to the OR today for a further debridement of her L arm wound. Although clean there were some areas of necrosis of muscle bellies and non-viable skin-all cleaned up and washed. A R IJ triple lumen catheter was place overnight. If not extubated in a day or 2, start tube feeds.
[2020-11-27 17:21] LABS: INTERNATIONAL RATION (INR) 1.77; PROTHROMBIN TIME 20.7 SEC (11.4-15.4)
[2020-11-27 17:23] LABS: HEMATOCRIT 26.1 % (36.0-47.0); HEMOGLOBIN 8.5 g/dL (12.0-15.5); MEAN CORPUSCULAR HGB CONC 32.5 g/dL (32.0-36.0); MEAN CORPUSCULAR VOLUME 83 fl (80-97); PLATELET COUNT 161 10^3/uL (150-450); RED BLOOD COUNT 3.14 10^6/uL (3.72-5.28); RED CELL DISTRIBUTION WIDTH 15.5 % (11.5-14.0); WHITE BLOOD COUNT 22.3 10^3/uL (4.0-10.5)
--- NOTE | 2020-11-28 03:00 | Progress Note ---
Provider Note Provider Note: [facility] and [facility] patient. I spoke with Dr. Vega Maxwell who accepted this patient and a report was given to him. Nursing staff notified and transport in being arranged per the staff.
[2020-11-28 06:26] LABS: HEMATOCRIT 26.4 % (36.0-47.0); HEMOGLOBIN 8.7 g/dL (12.0-15.5); MEAN CORPUSCULAR HEMOGLOBIN 27.3 pg (27.0-33.4); MEAN CORPUSCULAR VOLUME 83 fl (80-97); PLATELET COUNT 184 10^3/uL (150-450); WHITE BLOOD COUNT 22.3 10^3/uL (4.0-10.5)
[2020-11-28] MEDS ORDERED: NOREPINEPHRINE BITARTRATE INJ/PF 4 MG/4 ML SDV IV ONE (06:38)
[2020-11-28 06:41] LABS: ABSOLUTE LYMPHOCYTES# (MANUAL) 1.3 10^3/uL (0.5-4.7); ABSOLUTE MONOCYTES # (MANUAL) 0.9 10^3/uL (0.1-1.4); BAND NEUTROPHILS % (MANUAL) 2 % (3-5); BASOPHILS % (MANUAL) 0 % (0-2); EOSINOPHILS % (MANUAL) 1 % (0-6); LYMPHOCYTES % (MANUAL) 6 % (13-45); MONOCYTES % (MANUAL) 4 % (3-13); SEGMENTED NEUTROPHILS % (MAN) 87 % (42-78); TOTAL CELLS COUNTED 100
[2020-11-28 06:42] LABS: ANISOCYTOSIS 1+; PLATELET COMMENT ADEQUATE; POLYCHROMASIA SLIGHT; TOXIC GRANULATION 1+
[2020-11-28] MEDS: DEXTROSE 5%-WATER 250 ML with NOREPINEPHRINE BITARTRATE 4 MG IV PRN ×2 (06:43)
[2020-11-28 06:46] LABS: ANION GAP 9 (5-19); BLOOD UREA NITROGEN 24 mg/dL (7-20); CALCIUM 8.2 mg/dL (8.4-10.2); CARBON DIOXIDE 26 mmol/L (22-30); CHLORIDE 103 mmol/L (98-107); GLUCOSE 70 mg/dL (75-110); PHOSPHORUS 3.9 mg/dL (2.5-4.5); POTASSIUM 4.1 mmol/L (3.6-5.0)
[2020-11-28 06:56] LABS: PREALBUMIN < 3.0 mg/dL (17.6-36.0)
[2020-11-28 09:04] VITALS: BP 114/80
--- NOTE | 2020-11-28 09:29 | Progress Note ---
Provider Note Provider Note: Upon my entry into the room, the patient was being loaded by EMS for transport to another facility. EMS has requested not to change the arm dressing, as it will delay her transport. I have impressed upon the EMS workers that her dressing needs to be changed as soon as she arrives to the new facility. They expressed understanding.
== END 2020-11-28 09:30 | DRG 853 ==
LOC: OROUT 12:39 → EH 18:16
PROVIDERS: ADMIT Anesthesiology; ATTEND Anesthesiology
PROC: 0KB80ZZ Excision of Left Upper Arm Muscle, Open Approach (ICD-10-PCS; 2020-11-24)
PROC: 0KB60ZZ Excision of Left Shoulder Muscle, Open Approach (ICD-10-PCS; 2020-11-24)
PROC: 0J9H00Z Drainage of Left Lower Arm Subcutaneous Tissue and Fascia with Drainage Device, Open Approach (ICD-10-PCS; 2020-11-24)
PROC: 06HM33Z Insertion of Infusion Device into Right Femoral Vein, Percutaneous Approach (ICD-10-PCS; 2020-11-24)
PROC: 02H633Z Insertion of Infusion Device into Right Atrium, Percutaneous Approach (ICD-10-PCS; 2020-11-24)
PROC: 0BH17EZ Insertion of Endotracheal Airway into Trachea, Via Natural or Artificial Opening (ICD-10-PCS; 2020-11-24)
PROC: 5A1945Z Respiratory Ventilation, 24-96 Consecutive Hours (ICD-10-PCS; 2020-11-24)
PROC: 0KBB0ZZ Excision of Left Lower Arm and Wrist Muscle, Open Approach (ICD-10-PCS; principal; 2020-11-24 17:00)
PROC: B24BZZZ Ultrasonography of Heart with Aorta (ICD-10-PCS; 2020-11-25)
DX: A41.9 Sepsis, unspecified organism (principal); R65.21 Severe sepsis with septic shock; L02.414 Cutaneous abscess of left upper limb; L03.114 Cellulitis of left upper limb; L03.113 Cellulitis of right upper limb; B18.1 Chronic viral hepatitis B without delta-agent; M60.9 Myositis, unspecified; M72.8 Other fibroblastic disorders; F11.10 Opioid abuse, uncomplicated; F12.90 Cannabis use, unspecified, uncomplicated; F31.9 Bipolar disorder, unspecified; F20.9 Schizophrenia, unspecified; Z86.14 Personal history of Methicillin resistant Staphylococcus aureus infection; K21.9 Gastro-esophageal reflux disease without esophagitis; F17.210 Nicotine dependence, cigarettes, uncomplicated; B95.4 Other streptococcus as the cause of diseases classified elsewhere; F41.9 Anxiety disorder, unspecified; B96.89 Other specified bacterial agents as the cause of diseases classified elsewhere; Z20.822 Contact with and (suspected) exposure to COVID-19; Z88.2 Allergy status to sulfonamides; Z88.8 Allergy status to other drugs, medicaments and biological substances; Z82.61 Family history of arthritis; Z82.3 Family history of stroke; Z83.3 Family history of diabetes mellitus; Z83.438 Family history of other disorder of lipoprotein metabolism and other lipidemia; Z82.49 Family history of ischemic heart disease and other diseases of the circulatory system; Z78.1 Physical restraint status
CPT/HCPCS: 01710; 36415; 70450; 71045; 74018; 80048; 80053; 80307; 81025; 82330; 82533; 82550; 82803; 82962; 83605; 83735; 83930; 84100; 84134; 84145; 85025; 85027; 85610; 87040; 87070; 87075; 87077; 87150; 87186; 87205; 93005; 93010; 93306; 94002; 94003; 99140; 99285; J0610; 0241U; C1751; C9803; J0330; J0696; J1170; J1650; J2020; J2060; J2185; J2250; J2405; J2543; J2704; J3010; J3370; J3475; J3490; J7060; J7120; J7121; P9047; S0028; S0119